=== PATIENT | female | born 1935 | race Caucasian/White ===

== ENCOUNTER → 2016-07-08 | Outpatient (CLI) | payer BC ==
[~2016-07-08] MED LIST: CALC-338 PO; CHOL100010 PO; FLAXOIL2 PO; HYDR25TA5 PO; LOSA1TAB PO; MELA3TAB7 PO; MIRA1TAB3 PO; VITAMIN C PO
== END | disposition home or self-care (01) ==
LOC: C.LABSPEC 17:13
PROVIDERS: ATTEND Nurse Practitioner Adult Health
DX: N39.0 Urinary tract infection, site not specified (principal)

== ENCOUNTER → 2016-09-28 | Outpatient (CLI) | payer BC ==
[2016-09-28 09:36] LABS: BASO % 0.2 %; BASO ABS # 0.01 K/uL (0-0.2); COMPLETE YES; EOS % 3.4 %; HEMATOCRIT 41.7 % (37-47); LYMPH % 47.3 %; MEAN CELL VOLUME 92.9 fL (80-100); MEAN CORPUSCULAR HEMOGLOBIN 31.6 pg (25-34); MEAN CORPUSCULAR HGB CONC 34.1 g/dl (32-36); MEAN PLATELET VOLUME 10.1 fL (7.4-10.4); MONO % 7.4 %; NEUT % 41.7 %; PLATELET COUNT 197 K/uL (130-400); RED BLOOD COUNT 4.49 M/uL (4.2-5.4); WHITE BLOOD COUNT 4.44 K/uL (4.8-10.8)
[2016-09-28 10:00] LABS: ESTIMATED AVERAGE GLUCOSE 123 mg/dl; HA1C FLAG Normal (Normal)
[2016-09-28 10:27] LABS: BLOOD UREA NITROGEN 16 mg/dl (7-18); CREATININE 0.76 mg/dl (0.60-1.20); GLUCOSE 87 mg/dl (70-99)
[2016-09-28 10:28] LABS: ALT/SGPT 23 U/L (12-78); AST/SGOT 18 U/L (15-37); BUN/CREATININE RATIO 20.9 (10-20); CALCIUM 9.1 mg/dl (8.5-10.1); CARBON DIOXIDE 33 mmol/L (21-32); CHLORIDE 101 mmol/L (98-107); POTASSIUM 3.6 mmol/L (3.5-5.1); SODIUM 138 mmol/L (136-145)
[2016-09-28 10:37] LABS: ALB/GLOB RATIO 1.1 (0.9-2); ALKALINE PHOSPHATASE 60 U/L (45-117); CHOLESTEROL 217 mg/dl (0-200); CHOLESTEROL/HDL RATIO 3.1; HDL CHOLESTEROL 70 mg/dl; LDL CHOLESTEROL CALCULATED 125 mg/dl; PHOSPHORUS 3.1 mg/dl (2.5-4.9); TRIGLYCERIDES 112 mg/dl (0-150); VERY LOW DENSITY LIPOPROT CALC 22 mg/dl
[2016-09-29 09:52] LABS: C-REACTIVE PROT HIGHSEN 1.1 MG/L
--- NOTE | 2016-10-02 13:12 | CODING QUERY MEDICAL NECESSITY ---
CQSUPPORTING DIAGNOSIS NEEDED A supporting diagnosis is required for the test/procedure performed on this patient in order for us to be reimbursed by the patient's insurance. Please provide a supporting diagnosis for the following test/procedure listed below next to the test name along with your signature. *If there is no additional diagnosis for this patient that would support the following test/procedure please document that below next to the test/procedure. Test(s)/Procedure(s) that require a supporting diagnosis: DOS 09/28/16 VITAMIN D TEST VITAMIN B12 C-RECTIVE PROTEIN LANI SENSITIVITY TESTING Provider Signature: Date: Thank you Vashti Lawson Health Information Management Once completed, please kindly fax back to [phone] For questions please call [phone]
== END | disposition home or self-care (01) ==
LOC: C.LAB1850 08:23
PROVIDERS: ATTEND Family Medicine
DX: R73.09 Other abnormal glucose (principal); D51.9 Vitamin B12 deficiency anemia, unspecified; D47.2 Monoclonal gammopathy; E55.9 Vitamin D deficiency, unspecified

== ENCOUNTER → 2017-01-20 | Outpatient (CLI) | payer BC ==
--- NOTE | 2017-01-20 15:24 | DIAGNOSTIC IMAGING REPORT ---
TWO VIEW CHEST CLINICAL HISTORY: Dyspnea. FINDINGS: PA and lateral chest radiographs are compared to study dated 03/02/2013. Correlation is made with chest CT dated 08/08/2009. The cardiomediastinal silhouette is unremarkable. There is atherosclerotic calcification of the thoracic aorta. Chronic interstitial thickening is similar to previous no airspace consolidation or pleural effusion is identified. There is no pneumothorax. The skeletal structures are osteopenic. Degenerative change and mild kyphoscoliosis are noted in the thoracic spine. IMPRESSION: No active disease in the chest. Electronically signed by: Nikunj Isidro M.D. 01/20/2017 3:23 PM Dictated Date/Time: 01/20/2017 3:22 PM
== END | disposition home or self-care (01) ==
LOC: C.RAD 14:59
PROVIDERS: ATTEND Family Medicine
DX: J18.9 Pneumonia, unspecified organism (principal)

== ENCOUNTER → 2017-02-26 | Outpatient (CLI) | payer BC ==
--- NOTE | 2017-02-26 15:49 | MAMMOGRAPHY REPORT ---
BILATERAL DIGITAL SCREENING MAMMOGRAM WITH CAD: 02/26/2017 CLINICAL HISTORY: Routine screening. TECHNIQUE: Current study was also evaluated with a Computer Aided Detection (CAD) system. Bilateral CC and MLO views were obtained. COMPARISON: Comparison is made to exams dated: 02/13/2016 mammogram, 02/11/2015 mammogram, 02/09/2014 m ammogram, 02/08/2013 mammogram, 02/08/2012 mammogram, and 02/05/2011 mammogram - [facility] enter. BREAST COMPOSITION: There are scattered areas of fibroglandular density in both breasts. FINDINGS: No suspicious masses, calcifications, or areas of architectural distortion are noted in ei ther breast. There has been no significant interval change compared to prior exams. Scattered bilater al benign-appearing calcifications are not significantly changed. IMPRESSION: ACR BI-RADS CATEGORY 2: BENIGN There is no mammographic evidence of malignancy. A 1 year screening mammogram is recommended. The pa tient will receive written notification of the results. Approximately 10% of breast cancers are not detected with mammography. A negative mammographic report should not delay biopsy if a clinically suggestive mass is present. Astrid Smith M.D. ah/:02/26/2017 14:47:11 Dental Practice Manager: Joan BUTTS(Helen)(Kayy), [facility] letter sent: Normal 1/2 BI-RADS Code: ACR BI-RADS Category 2: Benign
== END | disposition home or self-care (01) ==
LOC: C.MAMM 13:44
PROVIDERS: ATTEND Family Medicine
DX: Z12.31 Encounter for screening mammogram for malignant neoplasm of breast (principal)

== ENCOUNTER → 2017-03-23 | Outpatient (CLI) | payer BC ==
[2017-03-23 09:35] LABS: BASO % 0.5 %; BASO ABS # 0.03 K/uL (0-0.2); COMPLETE YES; EOS % 1.9 %; HEMATOCRIT 41.2 % (37-47); IG% 0.2 %; LYMPH % 41.3 %; LYMPH ABS # 2.36 K/uL (1.2-3.4); MEAN CELL VOLUME 94.3 fL (80-100); MEAN CORPUSCULAR HEMOGLOBIN 30.9 pg (25-34); MEAN CORPUSCULAR HGB CONC 32.8 g/dl (32-36); NEUT % 49.1 %; PLATELET COUNT 225 K/uL (130-400); RED BLOOD COUNT 4.37 M/uL (4.2-5.4); WHITE BLOOD COUNT 5.72 K/uL (4.8-10.8)
[2017-03-23 09:58] LABS: ALT/SGPT 19 U/L (12-78); AST/SGOT 18 U/L (15-37); BLOOD UREA NITROGEN 20 mg/dl (7-18); BUN/CREATININE RATIO 28.8 (10-20); CALCIUM 9.2 mg/dl (8.5-10.1); CARBON DIOXIDE 31 mmol/L (21-32); CHLORIDE 102 mmol/L (98-107); CHOLESTEROL 195 mg/dl (0-200); CREATININE 0.68 mg/dl (0.60-1.20); GLUCOSE 89 mg/dl (70-99); POTASSIUM 3.5 mmol/L (3.5-5.1); SODIUM 138 mmol/L (136-145); TRIGLYCERIDES 104 mg/dl (0-150); VERY LOW DENSITY LIPOPROT CALC 21 mg/dl
[2017-03-23 10:06] LABS: ALB/GLOB RATIO 1.1 (0.9-2); ALKALINE PHOSPHATASE 68 U/L (45-117); CHOLESTEROL/HDL RATIO 2.8; HDL CHOLESTEROL 70 mg/dl; LDL CHOLESTEROL CALCULATED 104 mg/dl; PHOSPHORUS 2.6 mg/dl (2.5-4.9)
[2017-03-24 10:35] LABS: C-REACTIVE PROT HIGHSEN 1.6 MG/L
== END | disposition home or self-care (01) ==
LOC: C.LAB1850 08:11
PROVIDERS: ATTEND Family Medicine
DX: R73.09 Other abnormal glucose (principal); E55.9 Vitamin D deficiency, unspecified; D51.9 Vitamin B12 deficiency anemia, unspecified

== ENCOUNTER → 2017-09-27 | Outpatient (CLI) | payer BC ==
[2017-09-27 09:41] LABS: BASO % 0.4 %; BASO ABS # 0.02 K/uL (0-0.2); HEMATOCRIT 40.8 % (37-47); HEMOGLOBIN 14.1 g/dL (12.0-16.0); LYMPH % 40.3 %; LYMPH ABS # 1.99 K/uL (1.2-3.4); MEAN CELL VOLUME 93.2 fL (80-100); MEAN CORPUSCULAR HEMOGLOBIN 32.2 pg (25-34); MEAN CORPUSCULAR HGB CONC 34.6 g/dl (32-36); MEAN PLATELET VOLUME 9.9 fL (7.4-10.4); MONO % 8.9 %; MONO ABS # 0.44 K/uL (0.11-0.59); NEUT % 48.4 %; NEUT ABS # 2.39 K/uL (1.4-6.5); PLATELET COUNT 235 K/uL (130-400); RED CELL DISTRIBUTION WIDTH CV 13.4 % (11.5-14.5); RED CELL DISTRIBUTION WIDTH SD 45.6 fL (36.4-46.3); WHITE BLOOD COUNT 4.94 K/uL (4.8-10.8)
[2017-09-27 09:58] LABS: HEMOGLOBIN A1C 5.9 % (4.5-5.6)
[2017-09-27 10:05] LABS: ALBUMIN 3.6 gm/dl (3.4-5.0); ALT/SGPT 24 U/L (12-78); AST/SGOT 17 U/L (15-37); BLOOD UREA NITROGEN 18 mg/dl (7-18); CALCIUM 9.5 mg/dl (8.5-10.1); CARBON DIOXIDE 30 mmol/L (21-32); CHOLESTEROL 207 mg/dl (0-200); CREATININE 0.66 mg/dl (0.60-1.20); GLUCOSE 92 mg/dl (70-99); POTASSIUM 3.7 mmol/L (3.5-5.1); SODIUM 136 mmol/L (136-145); URIC ACID 5.2 mg/dl (2.6-7.2)
[2017-09-27 10:14] LABS: ALKALINE PHOSPHATASE 65 U/L (45-117); LDL CHOLESTEROL CALCULATED 114 mg/dl; TRANSFERRIN 237 mg/dl (200-360)
== END | disposition home or self-care (01) ==
LOC: C.LAB1850 07:52
PROVIDERS: ATTEND Family Medicine
DX: E88.81 Metabolic syndrome and other insulin resistance (principal); E55.9 Vitamin D deficiency, unspecified; D51.9 Vitamin B12 deficiency anemia, unspecified; E78.9 Disorder of lipoprotein metabolism, unspecified; R53.83 Other fatigue

== ENCOUNTER 2022-03-12 15:44 | Inpatient (IN) ==
[2022-03-12] MEDS ORDERED: SODIUM CHLORIDE 0.9% 500 ML IV STA (16:33)
--- NOTE | 2022-03-12 16:36 | Emergency Department Note ---
Impression & Plan Acute hyponatremia, Urinary tract infection ED Provider Note NAME: MEGHA SANTA AGE: 86 SEX: F : 1935 ARRIVES VIA: Walk-In INFORMANT: Patient, ED PROVIDER(S): Christian Diggs DO CHIEF COMPLAINT: Generalized weakness HPI: The patient is an 86-year-old female who presented to the emergency department for an evaluation of generalized weakness. The patient was seen in our facility yesterday for similar complaints. She had a fall recently and was diagnosed with a thoracic compression fracture. She was treated in the emergency department but also had other laboratory and radiographic studies. She is since been complaining of constipation. It was recommended that she stay in the emergency department for admission however she did not want to stay in the hospital so she left. The patient called her family doctor this morning and was instructed to return to the emergency department for admission because of h er low sodium. The patient states that she has noticed constipation as well as lower abdominal tenderness. She also has been noticing lower extremity swelling. She denies having any chest pain or difficulty breathing. She states that she has been compliant with her outpatient medications otherwise. ROS: See above HPI for pertinent positives & negatives. A total of 10 systems reviewed and were otherwise negative. PAST MEDICAL HISTORY: See Below PAST SURGICAL HISTORY: See Below FAMILY HISTORY: See Below SOCIAL HISTORY: See Below HOME MEDICATIONS: See Below ALLERGIES: See Below VITALS: See Below PHYSICAL EXAMINATION: GENERAL: Patient is awake alert in no acute distress patient is resting comfortably and showing no signs of anxiety EYES: The conjunctivae are clear. The pupils are round and reactive. EARS, NOSE, MOUTH AND THROAT: The nose is without any evidence of any deformity. Mucous membranes are moist. Tongue is midline. NECK: The neck is nontender and supple. RESPIRATORY: Normal respiratory effort is noted there is no evidence of wheezing rhonchi or rales CARDIOVASCULAR: Regular rate and rhythm noted there no murmurs rubs or gallops normal S1 normal S2. GASTROINTESTINAL: The abdomen is soft and mildly distended. There is no guarding or rigidity. MUSCULOSKELETAL/EXTREMITIES: There is no evidence of gross deformity full range of motion is noted in the hips and shoulders. SKIN: Pedal edema was noted bilaterally. She has very significant swelling that goes up to both legs. Skin is warm. NEUROLOGIC: Patient is awake alert and oriented x3 MEDICAL DECISION MAKING: The patient is an 86-year-old female who presented to the emergency department for an evaluation of weakness. The patient was seen in our facility yesterday. She is been having problems with constipation as well as a compression fracture in her spine. The patient also was noted to have hyponatremia. It was advised that the patient be admitted yesterday when she was seen in our facility. She was seen at her primary care physician's office and told to come back to the emergency department for reevaluation and for admission. The patient was treated with IV antibiotics for presumed urinary tract infection. She was reev aluated multiple times. I discussed her condition with the on-call [facility] hospitalist. Triage Nursing notes reviewed. Prior medical records reviewed Vital Signs: reviewed and remarkable for elevated blood pressure. Differential diagnosis: Infection, dehydration, metabolic abnormality, hypo/hyperglycemia, electrolyte disturbance, anemia, hypoxia, cardiac sources, intracerebral event, toxicologic, neurologic, as well as other pathologies. ER treatment provided: See below Diagnostics interpreted by me: ECG: EKG was obtained in the emergency department. My interpretation is sinus rhythm at 67 bpm. First-degree AV block was noted. There is no ectopy. There is no acute ST segment abnormalities noted. This was compared to a tracing from November 16, 2018. No changes were noted. Cardiac Monitoring: An order was placed for continuous cardiac monitoring. The monitor shows a rate of 71 bpm with sinus rhythm. Laboratory studies: As stated above and show below. Imaging studies: See below Consultation(s): I discussed this case with Dr. Villasenor Past Med/Surg History Medical History Arthritis Cystocele Encounter for pre-operative examination H/O uterine leiomyoma Hypertension Monoclonal gammopathy of unknown significance (MGUS) MVP (mitral valve prolapse) Post-menopausal bleeding Presence of pessary Second degree uterine prolapse Skin rash Urinary incontinence Surgical History H/O cervical polypectomy 2008 H/O inguinal hernia repair Left - 1998 History of elbow surgery "Broken elbow repair" - 11/1990 w/ Dr. Starr History of tonsillectomy Family History Mother Myocardial infarction Father Myocardial infarction Sister Breast cancer Other Asthma No family history of adverse response to anesthesia No family history of bleeding disorder Denies family history of Ovarian cancer Colorectal cancer Social History Smoking Status: Never smoker Second Hand Exposure: No; Hx Alcohol Use: No Hx Substance Use: No Preferred Language: Mohawk Communication Ability: Effective Cabinet Finisher Required: No Beliefs That Will Affect Care: None Current Living Situation: Spouse Feels Safe at Home: Yes Assistive Devices: None Allergies Allergies Allergy/AdvReac Type Severity Reaction Status Date / Time iodine Allergy UNK Verified 03/11/22 16:05 Penicillins AdvReac Unknown Verified 03/11/22 16:05 Jxrtbjq-RDR-XxW Reductase AdvReac Muscle Pain Verified 03/11/22 16:05 Inhibitor [Iceklil-Dxd-Ojk Reductase Inhibitor] Home Meds Home Medications Medication Instructions Recorded Confirmed calcium citrate 315 mg 1 tab PO DAILY 04/10/20 03/11/22 calcium-vitamin D3 6.25 mcg (250 unit) tablet (Citracal + Vitamin D Maximum) ascorbic acid (vitamin C) 1,000 mg 1 g PO QAM 09/26/21 03/11/22 tablet (Vitamin C With Gill Hips) diltiazem HCl 120 mg 120 mg PO DAILY 02/05/22 03/11/22 capsule,extended release 24 hr (Cartia XT) ergocalciferol (vitamin D2) 1,250 50,000 unit PO .COMPLEX 03/11/22 03/11/22 mcg (50,000 unit) capsule Previous Rx's Medication Instructions Recorded furosemide 20 mg tablet 10 mg PO DAILY #90 tabs 10/23/21 apixaban 5 mg tablet (Eliquis) 5 mg PO BID #180 tabs 02/03/22 spironolactone 25 mg tablet 25 mg PO DAILY #90 tabs 02/16/22 sennosides 8.6 mg-docusate sodium 1 tab-cap PO DAILY PRN 03/11/22 50 mg tablet constipation #60 tabs Results & Data (ED) Vital Signs Vital Signs - 24 hr 03/12/22 15:49 03/12/22 17:52 Temperature 36.3 C L Temperature Source Temporal Artery Scan Pulse Rate 78 Pulse Rate [Finger] 71 Pulse Rhythm [Finger] Regular Pulse Strength [Finger] Normal Respiratory Rate 19 20 Respiratory Effort / Characteristics Non-Labored Spontaneous Respiratory Depth Normal Respiratory Pattern Regular Blood Pressure 187/80 H Blood Pressure [Right Arm] 164/86 H Blood Pressure Mean 115 Blood Pressure Mean [Right Arm] 112 Blood Pressure Position [Right Arm] Lying Pulse Oximetry 98 95 Oxygen Delivery Method Room Air Sepsis Recent Fever Within 48 Hours No Sepsis New/Unexplained Change in Mental Status N/A Sepsis Action Taken by Nursing No Action Required Home Medications Current Medication List: was personally reviewed by me Laboratory Data Attestation: I reviewed the patient's lab results. Result diagrams: 03/12/22 16:34 03/12/22 16:34 Lab Results 03/12/22 03/12/22 03/12/22 Range/Units 16:34 16:34 16:34 WBC 6.06 (4.8-10.8) K/ul RBC 4.50 (3.93-5.22) M/uL Hgb 14.3 (12.0-16.0) g/dl Hct 41.5 (34.1-44.9) % MCV 92.2 (80.0-100.0) fL MCH 31.8 (25.0-34.0) pg MCHC 34.5 (32.0-36.0) g/dL RDW Std Deviation 40.0 (36.4-46.3) fL RDW Coeff of Jason 11.8 (11.5-14.5) % Plt Count 253 (130-400) K/uL MPV 8.7 L (9.4-12.3) fL Immature Gran % (Auto) 0.2 % Neut % (Auto) 65.2 % Lymph % (Auto) 23.9 % [place] % (Auto) 9.2 % Eos % (Auto) 1.2 % Baso % (Auto) 0.3 % Neut # (Auto) 3.95 (1.4-6.5) K/uL Lymph # (Auto) 1.45 (1.2-3.4) K/uL [place] # (Auto) 0.56 (0.24-0.82) K/uL Eos # (Auto) 0.07 (0-0.50) K/uL Baso # (Auto) 0.02 (0-0.2) K/uL Immature Gran # (Auto) 0.01 (0.00-0.02) K/uL PT 10.5 (9.0-12.0) Seconds INR 1.0 (0.9-1.1) APTT 30.8 (21.0-31.0) Seconds PTT Ratio 1.1 Sodium (136-145) mmol/L Potassium (3.5-5.1) mmol/L Chloride (98-107) mmol/L Carbon Dioxide (21-32) mmol/L Anion Gap (3-11) BUN (6-23) mg/dl Creatinine (0.6-1.2) mg/dl Est Cr Clr Drug Dosing Est GFR ( Amer) ml/min Est GFR (Non-Af Amer) ml/min BUN/Creatinine Ratio (10-20) Glucose (70-99(Fasting)) mg/dl Osmolality 265 L (280-300) mOsm/kg Calcium (8.5-10.1) mg/dl Total Bilirubin (0.2-1.0) mg/dl AST (13-39) U/L ALT (7-52) U/L Alkaline Phosphatase (34-104) U/L Troponin I High Sens (0-14) pg/ml Total Protein (6.0-8.3) gm/dl Albumin (3.4-5.0) gm/dl Globulin (2.5-4.0) gm/dl Albumin/Globulin Ratio (0.9-2) Lipase (11-82) U/L Urine Color Urine Appearance (Clear) Urine pH (4.5-7.5) Ur Specific [place] (1.000-1.030) Urine Protein (Negative) Urine Glucose (UA) (Negative) Urine Ketones (Negative) Urine Blood (Negative) Urine Nitrite (Negative) Urine Bilirubin (Negative) Urine Urobilinogen (Negative) Ur Leukocyte Esterase (Negative) Urine WBC (Auto) (0-5) /hpf Urine RBC (Auto) (0-4) /hpf U Hyaline Cast (Auto) (0-5) /lpf U Epithel Cells (Auto) (0-5) /lpf Urine Bacteria (Auto) (Negative) Urine Osmolality (500-800) mOsm/kg Ur Random Sodium mmol/L 03/12/22 03/12/22 03/12/22 Range/Units 16:34 17:33 17:33 WBC (4.8-10.8) K/ul RBC (3.93-5.22) M/uL Hgb (12.0-16.0) g/dl Hct (34.1-44.9) % MCV (80.0-100.0) fL MCH (25.0-34.0) pg MCHC (32.0-36.0) g/dL RDW Std Deviation (36.4-46.3) fL RDW Coeff of Jason (11.5-14.5) % Plt Count (130-400) K/uL MPV (9.4-12.3) fL Immature Gran % (Auto) % Neut % (Auto) % Lymph % (Auto) % [place] % (Auto) % Eos % (Auto) % Baso % (Auto) % Neut # (Auto) (1.4-6.5) K/uL Lymph # (Auto) (1.2-3.4) K/uL [place] # (Auto) (0.24-0.82) K/uL Eos # (Auto) (0-0.50) K/uL Baso # (Auto) (0-0.2) K/uL Immature Gran # (Auto) (0.00-0.02) K/uL PT (9.0-12.0) Seconds INR (0.9-1.1) APTT (21.0-31.0) Seconds PTT Ratio Sodium 121 L (136-145) mmol/L Potassium 4.7 (3.5-5.1) mmol/L Chloride 86 L (98-107) mmol/L Carbon Dioxide 29 (21-32) mmol/L Anion Gap 6 (3-11) BUN 26 H (6-23) mg/dl Creatinine 0.73 (0.6-1.2) mg/dl Est Cr Clr Drug Dosing Not Reportable Est GFR ( Amer) 86.4 ml/min Est GFR (Non-Af Amer) 74.6 ml/min BUN/Creatinine Ratio 35.6 H (10-20) Glucose 110 H (70-99(Fasting)) mg/dl Osmolality (280-300) mOsm/kg Calcium 10.5 H (8.5-10.1) mg/dl Total Bilirubin 0.5 (0.2-1.0) mg/dl AST 19 (13-39) U/L ALT 11 (7-52) U/L Alkaline Phosphatase 81 (34-104) U/L Troponin I High Sens 4.8 (0-14) pg/ml Total Protein 7.3 (6.0-8.3) gm/dl Albumin 4.4 (3.4-5.0) gm/dl Globulin 2.9 (2.5-4.0) gm/dl Albumin/Globulin Ratio 1.5 (0.9-2) Lipase 28 (11-82) U/L Urine Color Yellow Urine Appearance Clear (Clear) Urine pH 7.5 (4.5-7.5) Ur Specific [place] 1.012 (1.000-1.030) Urine Protein Negative (Negative) Urine Glucose (UA) Negative (Negative) Urine Ketones Negative (Negative) Urine Blood Trace H (Negative) Urine Nitrite Negative (Negative) Urine Bilirubin Negative (Negative) Urine Urobilinogen Negative (Negative) Ur Leukocyte Esterase 3+ H (Negative) Urine WBC (Auto) 10-30 H (0-5) /hpf Urine RBC (Auto) 5-10 H (0-4) /hpf U Hyaline Cast (Auto) 0 (0-5) /lpf U Epithel Cells (Auto) 20-30 H (0-5) /lpf Urine Bacteria (Auto) 1+ H (Negative) Urine Osmolality 380 L (500-800) mOsm/kg Ur Random Sodium mmol/L 03/12/22 Range/Units 17:33 WBC (4.8-10.8) K/ul RBC (3.93-5.22) M/uL Hgb (12.0-16.0) g/dl Hct (34.1-44.9) % MCV (80.0-100.0) fL MCH (25.0-34.0) pg MCHC (32.0-36.0) g/dL RDW Std Deviation (36.4-46.3) fL RDW Coeff of Jason (11.5-14.5) % Plt Count (130-400) K/uL MPV (9.4-12.3) fL Immature Gran % (Auto) % Neut % (Auto) % Lymph % (Auto) % [place] % (Auto) % Eos % (Auto) % Baso % (Auto) % Neut # (Auto) (1.4-6.5) K/uL Lymph # (Auto) (1.2-3.4) K/uL [place] # (Auto) (0.24-0.82) K/uL Eos # (Auto) (0-0.50) K/uL Baso # (Auto) (0-0.2) K/uL Immature Gran # (Auto) (0.00-0.02) K/uL PT (9.0-12.0) Seconds INR (0.9-1.1) APTT (21.0-31.0) Seconds PTT Ratio Sodium (136-145) mmol/L Potassium (3.5-5.1) mmol/L Chloride (98-107) mmol/L Carbon Dioxide (21-32) mmol/L Anion Gap (3-11) BUN (6-23) mg/dl Creatinine (0.6-1.2) mg/dl Est Cr Clr Drug Dosing Est GFR ( Amer) ml/min Est GFR (Non-Af Amer) ml/min BUN/Creatinine Ratio (10-20) Glucose (70-99(Fasting)) mg/dl Osmolality (280-300) mOsm/kg Calcium (8.5-10.1) mg/dl Total Bilirubin (0.2-1.0) mg/dl AST (13-39) U/L ALT (7-52) U/L Alkaline Phosphatase (34-104) U/L Troponin I High Sens (0-14) pg/ml Total Protein (6.0-8.3) gm/dl Albumin (3.4-5.0) gm/dl Globulin (2.5-4.0) gm/dl Albumin/Globulin Ratio (0.9-2) Lipase (11-82) U/L Urine Color Urine Appearance (Clear) Urine pH (4.5-7.5) Ur Specific [place] (1.000-1.030) Urine Protein (Negative) Urine Glucose (UA) (Negative) Urine Ketones (Negative) Urine Blood (Negative) Urine Nitrite (Negative) Urine Bilirubin (Negative) Urine Urobilinogen (Negative) Ur Leukocyte Esterase (Negative) Urine WBC (Auto) (0-5) /hpf Urine RBC (Auto) (0-4) /hpf U Hyaline Cast (Auto) (0-5) /lpf U Epithel Cells (Auto) (0-5) /lpf Urine Bacteria (Auto) (Negative) Urine Osmolality (500-800) mOsm/kg Ur Random Sodium 68 mmol/L Administered Medications Discontinued Medications Sodium Chloride (Nss) 500 mls @ 999 mls/hr IV .Q31M STA Stop: 03/12/22 17:03 Last Infusion: 03/12/22 17:45 Dose: 0 mls/hr Documented By: [id number] Admin: 03/12/22 17:00 Dose: 999 mls/hr Documented By: [id number] Imaging Data Radiologist's Impression: KUB X-Ray 03/12/22 16:33 KUB HISTORY: Acute generalized abdominal pain pain COMPARISON: CT abdomen and pelvis 03/11/2022 FINDINGS: Moderate fecal retention. Gas-filled loops of bowel within the central abdomen are likely large bowel and have decreased from the prior study. No renal calculi. No ureteral calculi. No pneumoperitoneum or pneumatosis. Dege nerative changes of the spine, pelvis and hips. The study is limited secondary to patient body habitus. Calcified uterine fibroid. No fracture. IMPRESSION: Suggested constipation with nonobstructive bowel gas pattern. ACT 112: Negative or not required by law. The above report was generated using voice recognition software. It may contain grammatical, syntax or spelling errors. Electronically signed by: Marcello Gonzalez M.D. 03/12/2022 5:09 PM Chest X-Ray 03/12/22 16:34 XR chest 1V portable CLINICAL HISTORY: pain COMPARISON STUDY: Chest CT August 08, 2009. Chest radiograph November 16, 2018. FINDINGS: Lung volumes are mildly diminished. No pneumothorax is noted. There is no definite pleural effusion. Blunting of the left costophrenic angle is likely chronic. Mild bibasilar opacities favor atelectasis. Cardiomediastinal silhouette is stable. No evidence for pulmonary edema. IMPRESSION: No acute cardiopulmonary findings. ACT 112: Negative or not required by law. Electronically signed by: Alonzo Crump M.D. 03/12/2022 4:56 PM Discharge Plan Visit Data Chief Complaint: Referred by Doctor Stated Complaint: REFERRED BY DOCTOR,ABNORMAL RESULTS ED Provider: Christian Diggs Discharge Problem: Acute hyponatremia, Urinary tract infection Patient Disposition: Being Evaluated by Hospitalist Forms Stand Alone Forms: [facility] Prescriptions Prescriptions: No Action furosemide 20 mg tablet 10 mg PO DAILY Qty: 90 3RF Eliquis 5 mg tablet 5 mg PO BID Qty: 180 3RF diltiazem HCl [Cartia XT] 120 mg capsule,extended release 24hr 120 mg PO DAILY ergocalciferol (vitamin D2) 1,250 mcg (50,000 unit) capsule 50,000 unit PO .COMPLEX Rx Instructions: 50,000 units PO once a week; spironolactone 25 mg tablet 25 mg PO DAILY Qty: 90 3RF calcium citrate-vitamin D3 [Citracal + D Maximum] 315 mg-6.25 mcg (250 unit) tablet 1 tab PO DAILY ascorbic acid (vitamin C) [Vitamin C With Gill Hips] 1,000 mg tablet 1 g PO QA sennosides-docusate sodium 8.6-50 mg tablet 1 tab-cap PO DAILY PRN (Reason: constipation) Qty: 60 0RF Referrals Referrals: Ayaan Arriola MD [Primary Care Provider] -
[2022-03-12 16:47] LABS: Basophils # (auto) 0.02 K/uL (0-0.2); Basophils % (auto) 0.3 %; Eosinophils # (auto) 0.07 K/uL (0-0.50); Eosinophils % (auto) 1.2 %; Hematocrit (blood only) 41.5 % (34.1-44.9); Hemoglobin 14.3 g/dl (12.0-16.0); Immature Granulocytes # (auto) 0.01 K/uL (0.00-0.02); Immature Granulocytes % (auto) 0.2 %; Lymphocytes # (auto) 1.45 K/uL (1.2-3.4); Lymphocytes % (auto) 23.9 %; Mean Corpuscular Hemoglobin 31.8 pg (25.0-34.0); Mean Corpuscular Hgb Conc 34.5 g/dL (32.0-36.0); Mean Corpuscular Volume 92.2 fL (80.0-100.0); Mean Platelet Volume 8.7 fL (9.4-12.3); Monocytes # (auto) 0.56 K/uL (0.24-0.82); Monocytes % (auto) 9.2 %; Neutrophils # (auto) 3.95 K/uL (1.4-6.5); Neutrophils % (auto) 65.2 %; Platelet Count 253 K/uL (130-400); RDW Coefficient of Variation 11.8 % (11.5-14.5); White Blood Count 6.06 K/ul (4.8-10.8)
--- NOTE | 2022-03-12 16:57 | XRay Report ---
XR chest 1V portable CLINICAL HISTORY: pain COMPARISON STUDY: Chest CT August 08, 2009. Chest radiograph November 16, 2018. FINDINGS: Lung volumes are mildly diminished. No pneumothorax is noted. There is no definite pleural effusion. Blunting of the left costophrenic angle is likely chronic. Mild bibasilar opacities favor a telectasis. Cardiomediastinal silhouette is stable. No evidence for pulmonary edema. IMPRESSION: No acute cardiopulmonary findings. ACT 112: Negative or not required by law. Electronically signed by: Alonzo Crump M.D. 03/12/2022 4:56 PM
[2022-03-12 17:00] LABS: Partial Thromboplastin Ratio 1.1; Partial Thromboplastin Time 30.8 Seconds (21.0-31.0); Prothrombin Time 10.5 Seconds (9.0-12.0)
[2022-03-12 17:10] LABS: Alanine Aminotransferase 11 U/L (7-52); Albumin Globulin Ratio 1.5 (0.9-2); Albumin Level 4.4 gm/dl (3.4-5.0); Alkaline Phosphatase 81 U/L (34-104); Anion Gap 6 (3-11); Aspartate Aminotransferase 19 U/L (13-39); BUN Creatinine Ratio 35.6 (10-20); Bilirubin,Total 0.5 mg/dl (0.2-1.0); Blood Urea Nitrogen 26 mg/dl (6-23); Calcium 10.5 mg/dl (8.5-10.1); Carbon Dioxide 29 mmol/L (21-32); Chloride 86 mmol/L (98-107); Est GFR (African American) 86.4 ml/min; Est GFR (Non-African American) 74.6 ml/min; Globulin 2.9 gm/dl (2.5-4.0); Glucose 110 mg/dl (70-99(Fasting)); Lipase 28 U/L (11-82); Potassium 4.7 mmol/L (3.5-5.1); Sodium 121 mmol/L (136-145); Total Protein 7.3 gm/dl (6.0-8.3)
--- NOTE | 2022-03-12 17:10 | XRay Report ---
KUB HISTORY: Acute generalized abdominal pain pain COMPARISON: CT abdomen and pelvis 03/11/2022 FINDINGS: Moderate fecal retention. Gas-filled loops of bowel within the central abdomen are likely l arge bowel and have decreased from the prior study. No renal calculi. No ureteral calculi. No pneumo peritoneum or pneumatosis. Degenerative changes of the spine, pelvis and hips. The study is limited s econdary to patient body habitus. Calcified uterine fibroid. No fracture. IMPRESSION: Suggested constipation with nonobstructive bowel gas pattern. ACT 112: Negative or not required by law. The above report was generated using voice recognition software. It may contain grammatical, syntax o r spelling errors. Electronically signed by: Marcello Gonzalez M.D. 03/12/2022 5:09 PM
[2022-03-12 17:15] LABS: Troponin I High Sensitivity 4.8 pg/ml (0-14)
[2022-03-12 17:43] LABS: Appearance Urine Clear (Clear); Bacteria Urine Automated 1+ (Negative); Bilirubin Urine Negative (Negative); Blood Urine Trace (Negative); Cast Urine Automated 0 /lpf (0-5); Color Urine Yellow; Epithelial Cell Urine Auto 20-30 /lpf (0-5); Glucose Urine UA Negative (Negative); Ketones Urine Negative (Negative); Leukocyte Esterase Urine 3+ (Negative); Nitrite Urine Negative (Negative); Protein Urine Negative (Negative); Specific Gravity Urine 1.012 (1.000-1.030); Urobilinogen Urine Negative (Negative); pH Urine 7.5 (4.5-7.5)
[2022-03-12] MEDS ORDERED: cefTRIAXone SODIUM 2,000 MG/70 ML BAG IV STA (19:18)
--- NOTE | 2022-03-12 19:23 | History & Physical Report ---
Date of Service March 12, 2022 Assessment & Plan (1) Acute hyponatremia: Plan: -Admit to medicine -Patient is currently afebrile, hemodynamically stable, and stable on room air -Not currently symptomatic at her current sodium level -Patient has a history of chronic hyponatremia and has been followed by Nephrology who has done a large workup thus far, per their last clinic note they switch her from a thiazide to lasix and encouraged her to increase her sodium intake -At this time the exact etiology of the patients acute on chronic hyponatremia is not definite but it likely has components of excessive free water intake as her serum and urine osmolality are both low, her lasix could also be contributing to the issue -Will hold her COAL CUTTER lasix for now and avoid free water intake -Ordered cortisol and TSH for am labs -Will repeat a sodium level overnight to ensure she is not correct too quickly -LACI stocking ordered to help with her lower extremity edema -AM BMP, mag, and phos (2) Constipation: Plan: -Patient has been severely constipated for approximately 3 weeks -CT yesterday and KUB today negative for obstruction -Will continue a heavy oral bowel regimen along with Fleet enemas, if no bowel movement by tomorrow morning she is willing to try manual disimpaction (3) Urinary tract infection: Plan: -ED gave patient a dose of ceftriaxone for a dirty UA but the patient has been afebrile, no leukocytosis, and no urinary symptoms -Hold additional abx for now and follow urine cultures (4) Paroxysmal atrial fibrillation: Plan: -Continue COAL CUTTER eliquis, and diltiazem (5) Hypertension: Plan: -Hold COAL CUTTER lasix for now until her sodium improves (6) Hyperlipidemia: Plan: -COAL CUTTER statin Plan The patient was discussed with Dr. Villasenor at the time of admission History of Present Illness Chief Complaint: Generalized weakness Primary Care Provider: Ayaan Arriola MD Trisha is an 86 y/o F with a PMH of chronic hyponatremia, HTN, hyperlipidemia, impaired glucose metabolism, paroxysmal Afib (on Eliquis), DVT, IgG gammopathy, osteoporosis and osteoarthritis who presented to the [facility] ED on 03/12/22 at the recommendation of her PCP for hyponatremia. Per chart review, the patient had fall on 02/25/22 resulting in a thoracic vertebra compression fracture. She came to the [facility] ED yesterday with complaints of constipation. CT of the abdomen and pelvis was negative for acute findings including obstruction and showed diverticulosis without diverticulitis. During their workup she was found to be hyponatremic at 122 (baseline is 130). For her constipation they gave her lactulose and a soap suds enema without relief, she declined manual disimpaction. The ED staff recommended she be admitted for her acute on chronic hyponatremia but she declined saying that she felt well. She elected to go home with a prescription of Sennosides-docusate sodium. In the ED today the patient was again noted to be hyponatremic at 121, renal function and other electrolytes are stable, Serum osmolality is 265 with urine osmolality of 380, UA appears infected as well, chest xray was negative for acute findings and KUG shows constipation without obstruction. In the ED the patient was given 2g of ceftriaxone for her UTI. At the time of the exam the patient was lying comfortably in bed in no acute distress with her daughter sitting bedside. They state that the patient has not had a bowel movement in 3 weeks until early this am when she had a small, liquid BM. She will have occasional sharp lower abdominal pain and denies recent nausea and vomiting. She has been trying to drink alot of water recently as they thought it would help her constipation but is unable to quantify how much she has been drinking. She states that she is still having pain in her thoracic spine as well. When asked about her current diuretic regimen she and her daughter state that she was switched off of her thiazide diuretic and has been taking her lasix 20 mg PO daily as prescribed. She has noticed some increased BL lower extremity edema over the past week but denies chest pain, cough, and SOB. She denies having dysuria, urine incontinence, and increased urinary frequency. She is will to continue enemas and a heavy oral bowel regimen at this time. If no significant bowel movement by tomorrow she would like to try digital disimpaction. She denies feeling lightheaded, dizzy, having changes in vision, hearing, taste, and smell, dysuria, hematuria, and recent falls since her last. Allergies Allergy/AdvReac Type Severity Reaction Status Date / Time iodine Allergy UNK Verified 03/11/22 16:05 Penicillins AdvReac Unknown Verified 03/11/22 16:05 Cmtdddz-RSS-AcR Reductase AdvReac Muscle Pain Verified 03/11/22 16:05 Inhibitor [Bcrhhjs-Bix-Vtm Reductase Inhibitor] Home Medications Medication Instructions Recorded Confirmed Type calcium citrate 315 mg 1 tab PO DAILY 04/10/20 03/15/22 History calcium-vitamin D3 6.25 mcg (250 unit) tablet (Citracal + Vitamin D Maximum) ascorbic acid (vitamin C) 1,000 mg 1 g PO QAM 09/26/21 03/15/22 History tablet (Vitamin C With Gill Hips) apixaban 5 mg tablet (Eliquis) 5 mg PO BID #180 tabs 02/03/22 03/15/22 Rx diltiazem HCl 120 mg 120 mg PO DAILY 02/05/22 03/15/22 History capsule,extended release 24 hr (Cartia XT) ergocalciferol (vitamin D2) 1,250 50,000 unit PO .COMPLEX 03/11/22 03/15/22 History mcg (50,000 unit) capsule sennosides 8.6 mg-docusate sodium 1 tab-cap PO DAILY PRN 03/11/22 03/19/22 Rx 50 mg tablet constipation #60 tabs lidocaine 5 % topical patch 1 patch transdermal QAM #30 ea 03/19/22 Rx sodium chloride 1 gram tablet 1 g PO BID #60 tabs 03/19/22 Rx Past Med/Surg History Medical History Arthritis Compression fracture Cystocele Encounter for pre-operative examination H/O uterine leiomyoma Hypertension Monoclonal gammopathy of unknown significance (MGUS) MVP (mitral valve prolapse) Post-menopausal bleeding Presence of pessary Second degree uterine prolapse Skin rash Urinary incontinence Surgical History H/O cervical polypectomy 2008 H/O inguinal hernia repair Left - 1998 History of elbow surgery "Broken elbow repair" - 11/1990 w/ Dr. Starr History of tonsillectomy Family History Mother Myocardial infarction Father Myocardial infarction Sister Breast cancer Other Asthma No family history of adverse response to anesthesia No family history of bleeding disorder Denies family history of Ovarian cancer Colorectal cancer Social History (Reviewed 03/17/22 @ 10:16 by SHANTAL Christy Smoking Status: Never smoker Second Hand Exposure: No; Hx Alcohol Use: No Hx Substance Use: No Preferred Language: Uruguayan Communication Ability: Effective Director And Professor Required: No Beliefs That Will Affect Care: None marital status: Current Living Situation: Spouse How many Children do You have: 2 Feels Safe at Home: Yes Assistive Devices: Cane Review of Systems Review of Systems: Denies current fever, chills, headache, changes in vision, hearing, taste, and smell, chest pain, SOB, cough, diarrhea, hematemesis, melena, dysuria, hematuria, and recent falls. All systems have been reviewed and are otherwise negative. Physical Exam Physical Exam: Physical Exam: General: In no acute distress, stated age, well-nourished, good hygiene HEENT: Normocephalic, atraumatic, no scleral icterus, pupils around round, symmetrical, and reactive to light, moist mucus membranes, trachea midline, no thyromegaly Chest/Pulm: No respiratory distress, symmetrical chest expansion, clear breath sounds throughout Cardiac: irregular rate and rhythm, systolic murmur noted Abdomen: Negative for ascites and bruising, normoactive bowel sounds, soft, non-tender to palpation throughout Musculoskeletal: Symmetrical and without signs of acute trauma, upper and lower extremities with full ROM, no atrophy, spasticity, or flaccidity Extremities: Radial, dorsalis pedis, and posterior tibial pulses are intact and symmetrical, +2 pitting edema in the BL lower extremities Skin: Warm, dry, no rashes , lesions, or scars noted Neuro: Alert and oriented to person, place, month, year, and president, no focal defects, CN II-XII tested and intact, finger to nose test negative, no tremors noted Psych: No acute distress, calm and cooperative during the exam Results & Data Results & Data ([facility]) Vital Signs (Past 12 Hours) Vital Signs Temp Pulse Pulse Resp BP BP Pulse Ox 03/12/22 17:52 71 20 164/86 H 95 03/12/22 15:49 36.3 C L 78 19 187/80 H 98 O2 Del Method 03/12/22 17:52 Room Air 03/12/22 15:49 Laboratory Results Abnormal lab results 03/12/22 03/12/22 03/12/22 Range/Units 16:34 16:34 16:34 MPV 8.7 L (9.4-12.3) fL Sodium 121 L (136-145) mmol/L Chloride 86 L (98-107) mmol/L BUN 26 H (6-23) mg/dl BUN/Creatinine Ratio 35.6 H (10-20) Glucose 110 H (70-99(Fasting)) mg/dl Osmolality 265 L (280-300) mOsm/kg Calcium 10.5 H (8.5-10.1) mg/dl Urine Blood (Negative) Ur Leukocyte Esterase (Negative) Urine WBC (Auto) (0-5) /hpf Urine RBC (Auto) (0-4) /hpf U Epithel Cells (Auto) (0-5) /lpf Urine Bacteria (Auto) (Negative) Urine Osmolality (500-800) mOsm/kg 03/12/22 03/12/22 Range/Units 17:33 17:33 MPV (9.4-12.3) fL Sodium (136-145) mmol/L Chloride (98-107) mmol/L BUN (6-23) mg/dl BUN/Creatinine Ratio (10-20) Glucose (70-99(Fasting)) mg/dl Osmolality (280-300) mOsm/kg Calcium (8.5-10.1) mg/dl Urine Blood Trace H (Negative) Ur Leukocyte Esterase 3+ H (Negative) Urine WBC (Auto) 10-30 H (0-5) /hpf Urine RBC (Auto) 5-10 H (0-4) /hpf U Epithel Cells (Auto) 20-30 H (0-5) /lpf Urine Bacteria (Auto) 1+ H (Negative) Urine Osmolality 380 L (500-800) mOsm/kg Diagnostic Findings KUB X-Ray 03/12/22 16:33 KUB HISTORY: Acute generalized abdominal pain pain COMPARISON: CT abdomen and pelvis 03/11/2022 FINDINGS: Moderate fecal retention. Gas-filled loops of bowel within the central abdomen are likely large bowel and have decreased from the prior study. No renal calculi. No ureteral calculi. No pneumoperitoneum or pneumatosis. Degenerative changes of the spine, pelvis and hips. The study is limited secondary to patient body habitus. Calcified uterine fibroid. No fracture. IMPRESSION: Suggested constipation with nonobstructive bowel gas pattern. ACT 112: Negative or not required by law. The above report was generated using voice recognition software. It may contain grammatical, syntax or spelling errors. Electronically signed by: Marcello Gonzalez M.D. 03/12/2022 5:09 PM Chest X-Ray 03/12/22 16:34 XR chest 1V portable CLINICAL HISTORY: pain COMPARISON STUDY: Chest CT August 08, 2009. Chest radiograph November 16, 2018. FINDINGS: Lung volumes are mildly diminished. No pneumothorax is noted. There is no definite pleural effusion. Blunting of the left costophrenic angle is likely chronic. Mild bibasilar opacities favor atelectasis. Cardiomediastinal silhouette is stable. No evidence for pulmonary edema. IMPRESSION: No acute cardiopulmonary findings. ACT 112: Negative or not required by law. Electronically signed by: Alonzo Crump M.D. 03/12/2022 4:56 PM ECG Additional Comments: Sinus rhythm with 1st degree A-V block Otherwise normal ECG When compared with ECG of 16-NOV-2018 09:17, Premature atrial complexes are no longer Present GA interval has increased Code Status & VTE Plan Code Status Full code VTE Prophylaxis Plan VTE Prophylaxis will be ordered: Yes Supervising Physician Co-Signing Physician Notes Patient seen and examined at bedside. During face to face encounter obtained a history and physical examination. I reviewed above note and agree with it. Plan of care discussed with patient and APC Peno. will admit to medicine for hyponatremia. will monitor. consult nephro. recommend fluid restriction. PG Care Time/CCT Total # of Minutes Spent Total Time Spent with Patient: Total time spent is greater than 50% in coordination of care (as documented) at patient's floor/unit and/or counseling patient: [place] [address] Initial Inpt Care Lvl 2 Patient Type Established Medical Decision Making Moderate Complexity Diagnoses Acute hyponatremia E87.1 Constipation K59.00 Constipation type: unspecified constipation type Urinary tract infection N39.0 Paroxysmal atrial fibrillation I48.0 Hypertension I10 Hyperlipidemia E78.5 (1) Constipation Constipation type: unspecified constipation type Qualified Code(s): K59.00 - Constipation, unspecified
[2022-03-12] MEDS ORDERED: SOD PHOSPHATE/SOD BIPHOSPHATE ENEMA 132 ML BTL PR STA (23:10)
[2022-03-13] MEDS: DOCUSATE SODIUM/SENNA 50/8.6MG TAB PO SCH ×3 (00:01→20:43)
[2022-03-13] MEDS: POLYETHYLENE (MIRALAX) 17 GM PACK PO SCH ×2 (08:21)
[2022-03-13] MEDS: CALCIUM 600MG + VIT D 400 IU TAB PO SCH (08:29)
[2022-03-13] MEDS: dilTIAZem HCL 120 MG CAPCR PO SCH (08:29)
[2022-03-13] MEDS: ASCORBIC ACID 500 MG TAB PO SCH (08:29)
[2022-03-13] MEDS: APIXABAN 5 MG TABLET PO SCH ×3 (08:29→20:39)
[2022-03-13 08:34] LABS: Hemoglobin 12.7 g/dl (12.0-16.0); Mean Corpuscular Hemoglobin 32.3 pg (25.0-34.0); Mean Corpuscular Hgb Conc 35.3 g/dL (32.0-36.0); Mean Corpuscular Volume 91.6 fL (80.0-100.0); Mean Platelet Volume 8.6 fL (9.4-12.3); Platelet Count 214 K/uL (130-400); RDW Coefficient of Variation 11.9 % (11.5-14.5); Red Blood Count 3.93 M/uL (3.93-5.22); White Blood Count 5.73 K/ul (4.8-10.8)
[2022-03-13 09:02] LABS: BUN Creatinine Ratio 27.3 (10-20); Calcium 9.1 mg/dl (8.5-10.1); Creatinine Clr Calc Pharmacy 61.7 ml/min; Est GFR (African American) 92.7 ml/min; Potassium 4.4 mmol/L (3.5-5.1)
[2022-03-13] MEDS ORDERED: traMADol HCL 50 MG TABLET PO STA (11:23)
--- NOTE | 2022-03-13 11:24 | Hospitalist Progress Note ---
Date of Service March 13, 2022 Assessment & Plan (1) Acute hyponatremia: Plan: Acute on chronic hyponatremia -Not currently symptomatic at her current sodium level - Patient with low serum NA, low serum osmo and urine osmo 380. Decrease solute intake in the setting of diuresis and increase free water intake. May have component of SIADH with pain - TSH normal - AM random cortisol 12 - No change to serum NA this morning- free water restrict, and fluid restrict to 1400ml add 1 GM salt tabs TID with meals -LACI stocking ordered to help with her lower extremity edema -AM BMP, mag, and phos (2) Compression fracture: Plan: Patient with fall earlier in the month. She had plain films performed at that time - -indeterminant age of T2 endplate fracture - remains with pain to back- lower thorax into lumbar - will obtain CT scan of thoraco/lumbar - pain control Tylenol, Lidocaine patch added and will try low dose of tramadol (25mg) - if this helps continue low dose tramadol - she would like to avoid heavy narcotics (3) Constipation: Plan: -Patient has been severely constipated for approximately 3 weeks -CT yesterday and KUB today negative for obstruction -Will continue a heavy oral bowel regimen along with Fleet enemas, if no bowel movement by tomorrow morning she is willing to try manual disimpaction - add MOM - liquid stool with gas noted - she feel symptomatically improved (4) Paroxysmal atrial fibrillation: Plan: -Continue eliquis, and diltiazem - rate controlled (5) Hypertension: Plan: Hold diuretics at this time (6) Hyperlipidemia: Plan: - Continue statin (7) Abnormal urinalysis: Plan: -ED gave patient a dose of ceftriaxone for a dirty UA but the patient has been afebrile, no leukocytosis, and no urinary symptoms -Hold additional abx for now and follow urine cultures - Agree UA on admission heavy with epis- continue to follow- hold abx. Admission and Anticipated Discharge Date Admission Date: March 12, 2022 Supervising Physician Co-Signing Physician Notes KAREN Supervision Note: I did not personally see or examine the patient today, but I verified all bunn points of KAREN Gross's assessment and plan with the following exceptions/additions: None Subjective 86 YOF HD # 1 admission for constipation associated with hyponatremia. Constipation she feels is from pain medication and not eating after she fell and sustained a compression fracture earlier in the month. Patient NA levels have been decreasing, and she endorses to originally trying to drink water with her constipation. She was then instructed to not drink water so was drinking prune juice and orange juice. She endorses not having much food intake as well. Her labs are reviewed, diuretics held. Continue work-up for pain control for her compression fracture. She is out of bed to chair. Review of Systems Review of Systems: REVIEW OF SYSTEMS: Constitutional: No fever, sweats or chills Eyes: No diplopia, no worsening or blurred vision ENT: (+) difficulty hearing, no trouble swallowing Respiratory: No cough, sputum, dyspnea at rest or on exertion Cardiovascular: No chest pain, tightness or palpitations Abdomen: (+) constipation pain, No nausea, vomiting, diarrhea or constipation Musculoskeletal: (+) lower back joint pain, no calf pain, swelling Neurologic: No weakness, numbness/tingling, or balance problems Psychiatric: No anxiety or depression Skin: No rash or itch Physical Exam Physical Exam: PHYSICAL EXAM: General: awake, alert, no apparent distress Head: Normocephalic, atraumatic ENT: PERRL, EOMI, no pharyngeal exudate, mucous membranes dry Neuro: AAO x 3, speech clear and appropriate, strength intact bilaterally 5/5, sensation intact and equal all extremities and dermatomes, no pronator drift Chest: equal rise and fall of the chest, no accessory muscle use, no heaves or thrills, Clear to auscultation, on room air, Cardiac: Regular rate and rhythm, telemetry reviewed, skin warm dry, cap refill <3 seconds, peripheral pulses +2 no JVD, no murmur, no edema GI: NABS x 4 quadrants, soft, nontender to palpation, no rebound, guarding or tenderness : Spontaneously voiding, no pain, no CVA tenderness, MSK- tender to palpation lower lumbar spine, no radicular symptoms Psych: Normal mood and affect Skin: no rash or erythema Results & Data Results & Data ([facility]) Vital Signs (Past 12 Hours) Vital Signs Temp Pulse Resp BP Pulse Ox O2 Del Method 03/13/22 08:01 36.5 C 72 18 164/77 H 99 Room Air Laboratory Results Laboratory Results - last 24 hr 09/03/12/22 03/12/22 16:34 16:34 16:34 WBC 6.06 RBC 4.50 Hgb 14.3 Hct 41.5 MCV 92.2 MCH 31.8 MCHC 34.5 RDW Std Deviation 40.0 RDW Coeff of Jason 11.8 Plt Count 253 MPV 8.7 L Immature Gran % (Auto) 0.2 Neut % (Auto) 65.2 Lymph % (Auto) 23.9 Mcleod % (Auto) 9.2 Eos % (Auto) 1.2 Baso % (Auto) 0.3 Neut # (Auto) 3.95 Lymph # (Auto) 1.45 Mcleod # (Auto) 0.56 Eos # (Auto) 0.07 Baso # (Auto) 0.02 Immature Gran # (Auto) 0.01 PT 10.5 INR 1.0 APTT 30.8 PTT Ratio 1.1 Sodium Potassium Chloride Carbon Dioxide Anion Gap BUN Creatinine Est Cr Clr Drug Dosing Est GFR ( Amer) Est GFR (Non-Af Amer) BUN/Creatinine Ratio Glucose Osmolality 265 L Calcium Total Bilirubin AST ALT Alkaline Phosphatase Troponin I High Sens Total Protein Albumin Globulin Albumin/Globulin Ratio Lipase TSH Cortisol AM Sample Urine Color Urine Appearance Urine pH Ur Specific Marion Urine Protein Urine Glucose (UA) Urine Ketones Urine Blood Urine Nitrite Urine Bilirubin Urine Urobilinogen Ur Leukocyte Esterase Urine WBC (Auto) Urine RBC (Auto) U Hyaline Cast (Auto) U Epithel Cells (Auto) Urine Bacteria (Auto) Urine Osmolality Ur Random Sodium SARS-CoV-2, RNA, NAAT 03/12/22 03/12/22 03/12/22 16:34 17:33 17:33 WBC RBC Hgb Hct MCV MCH MCHC RDW Std Deviation RDW Coeff of Jason Plt Count MPV Immature Gran % (Auto) Neut % (Auto) Lymph % (Auto) Mcleod % (Auto) Eos % (Auto) Baso % (Auto) Neut # (Auto) Lymph # (Auto) Mcleod # (Auto) Eos # (Auto) Baso # (Auto) Immature Gran # (Auto) PT INR APTT PTT Ratio Sodium 121 L Potassium 4.7 Chloride 86 L Carbon Dioxide 29 Anion Gap 6 BUN 26 H Creatinine 0.73 Est Cr Clr Drug Dosing Not Reportable Est GFR ( Amer) 86.4 Est GFR (Non-Af Amer) 74.6 BUN/Creatinine Ratio 35.6 H Glucose 110 H Osmolality Calcium 10.5 H Total Bilirubin 0.5 AST 19 ALT 11 Alkaline Phosphatase 81 Troponin I High Sens 4.8 Total Protein 7.3 Albumin 4.4 Globulin 2.9 Albumin/Globulin Ratio 1.5 Lipase 28 TSH Cortisol AM Sample Urine Color Yellow Urine Appearance Clear Urine pH 7.5 Ur Specific Marion 1.012 Urine Protein Negative Urine Glucose (UA) Negative Urine Ketones Negative Urine Blood Trace H Urine Nitrite Negative Urine Bilirubin Negative Urine Urobilinogen Negative Ur Leukocyte Esterase 3+ H Urine WBC (Auto) 10-30 H Urine RBC (Auto) 5-10 H U Hyaline Cast (Auto) 0 U Epithel Cells (Auto) 20-30 H Urine Bacteria (Auto) 1+ H Urine Osmolality 380 L Ur Random Sodium SARS-CoV-2, RNA, NAAT 03/12/22 03/12/22 03/13/22 17:33 17:47 00:40 WBC RBC Hgb Hct MCV MCH MCHC RDW Std Deviation RDW Coeff of Jason Plt Count MPV Immature Gran % (Auto) Neut % (Auto) Lymph % (Auto) Mcleod % (Auto) Eos % (Auto) Baso % (Auto) Neut # (Auto) Lymph # (Auto) Mcleod # (Auto) Eos # (Auto) Baso # (Auto) Immature Gran # (Auto) PT INR APTT PTT Ratio Sodium 123 L Potassium Chloride Carbon Dioxide Anion Gap BUN Creatinine Est Cr Clr Drug Dosing Est GFR ( Amer) Est GFR (Non-Af Amer) BUN/Creatinine Ratio Glucose Osmolality Calcium Total Bilirubin AST ALT Alkaline Phosphatase Troponin I High Sens Total Protein Albumin Globulin Albumin/Globulin Ratio Lipase TSH Cortisol AM Sample Urine Color Urine Appearance Urine pH Ur Specific Marion Urine Protein Urine Glucose (UA) Urine Ketones Urine Blood Urine Nitrite Urine Bilirubin Urine Urobilinogen Ur Leukocyte Esterase Urine WBC (Auto) Urine RBC (Auto) U Hyaline Cast (Auto) U Epithel Cells (Auto) Urine Bacteria (Auto) Urine Osmolality Ur Random Sodium 68 SARS-CoV-2, RNA, NAAT NEGATIVE 03/13/22 03/13/22 03/13/22 08:22 08:22 08:22 WBC 5.73 RBC 3.93 Hgb 12.7 Hct 36.0 MCV 91.6 MCH 32.3 MCHC 35.3 RDW Std Deviation 40.0 RDW Coeff of Jason 11.9 Plt Count 214 MPV 8.6 L Immature Gran % (Auto) Neut % (Auto) Lymph % (Auto) Mcleod % (Auto) Eos % (Auto) Baso % (Auto) Neut # (Auto) Lymph # (Auto) Mcleod # (Auto) Eos # (Auto) Baso # (Auto) Immature Gran # (Auto) PT INR APTT PTT Ratio Sodium Potassium Chloride Carbon Dioxide Anion Gap BUN Creatinine Est Cr Clr Drug Dosing Est GFR ( Amer) Est GFR (Non-Af Amer) BUN/Creatinine Ratio Glucose Osmolality Calcium Total Bilirubin AST ALT Alkaline Phosphatase Troponin I High Sens Total Protein Albumin Globulin Albumin/Globulin Ratio Lipase TSH Pending Cortisol AM Sample 12.74 Urine Color Urine Appearance Urine pH Ur Specific Marion Urine Protein Urine Glucose (UA) Urine Ketones Urine Blood Urine Nitrite Urine Bilirubin Urine Urobilinogen Ur Leukocyte Esterase Urine WBC (Auto) Urine RBC (Auto) U Hyaline Cast (Auto) U Epithel Cells (Auto) Urine Bacteria (Auto) Urine Osmolality Ur Random Sodium SARS-CoV-2, RNA, NAAT 03/13/22 08:22 WBC RBC Hgb Hct MCV MCH MCHC RDW Std Deviation RDW Coeff of Jason Plt Count MPV Immature Gran % (Auto) Neut % (Auto) Lymph % (Auto) Mcleod % (Auto) Eos % (Auto) Baso % (Auto) Neut # (Auto) Lymph # (Auto) Mcleod # (Auto) Eos # (Auto) Baso # (Auto) Immature Gran # (Auto) PT INR APTT PTT Ratio Sodium 121 L Potassium 4.4 Chloride 88 L Carbon Dioxide 28 Anion Gap 5 BUN 18 Creatinine 0.66 Est Cr Clr Drug Dosing 61.7 Est GFR ( Amer) 92.7 Est GFR (Non-Af Amer) 80.0 BUN/Creatinine Ratio 27.3 H Glucose 93 Osmolality Calcium 9.1 Total Bilirubin AST ALT Alkaline Phosphatase Troponin I High Sens Total Protein Albumin Globulin Albumin/Globulin Ratio Lipase TSH Cortisol AM Sample Urine Color Urine Appearance Urine pH Ur Specific Marion Urine Protein Urine Glucose (UA) Urine Ketones Urine Blood Urine Nitrite Urine Bilirubin Urine Urobilinogen Ur Leukocyte Esterase Urine WBC (Auto) Urine RBC (Auto) U Hyaline Cast (Auto) U Epithel Cells (Auto) Urine Bacteria (Auto) Urine Osmolality Ur Random Sodium SARS-CoV-2, RNA, NAAT Diagnostic Findings KUB X-Ray 03/12/22 16:33 KUB HISTORY: Acute generalized abdominal pain pain COMPARISON: CT abdomen and pelvis 03/11/2022 FINDINGS: Moderate fecal retention. Gas-filled loops of bowel within the central abdomen are likely large bowel and have decreased from the prior study. No renal calculi. No ureteral calculi. No pneumoperitoneum or pneumatosis. Degenerative changes of the spine, pelvis and hips. The study is limited secondary to patient body habitus. Calcified uterine fibroid. No fracture. IMPRESSION: Suggested constipation with nonobstructive bowel gas pattern. ACT 112: Negative or not required by law. The above report was generated using voice recognition software. It may contain grammatical, syntax or spelling errors. Electronically signed by: Marcello Gonzalez M.D. 03/12/2022 5:09 PM Chest X-Ray 03/12/22 16:34 XR chest 1V portable CLINICAL HISTORY: pain COMPARISON STUDY: Chest CT August 08, 2009. Chest radiograph November 16, 2018. FINDINGS: Lung volumes are mildly diminished. No pneumothorax is noted. There is no definite pleural effusion. Blunting of the left costophrenic angle is likely chronic. Mild bibasilar opacities favor atelectasis. Cardiomediastinal silhouette is stable. No evidence for pulmonary edema. IMPRESSION: No acute cardiopulmonary findings. ACT 112: Negative or not required by law. Electronically signed by: Alonzo Crump M.D. 03/12/2022 4:56 PM Medications Administered Home Medications calcium citrate 315 mg calcium-vitamin D3 6.25 mcg (250 unit) tablet (Citracal + Vitamin D Maximum) 1 tab PO DAILY 04/10/20 [History Confirmed 03/11/22] ascorbic acid (vitamin C) 1,000 mg tablet (Vitamin C With Gill Hips) 1 g PO QAM 09/26/21 [History Confirmed 03/11/22] furosemide 20 mg tablet 10 mg PO DAILY #90 tabs 10/23/21 [Rx Confirmed 03/11/22] apixaban 5 mg tablet (Eliquis) 5 mg PO BID #180 tabs 02/03/22 [Rx Confirmed 03/11/22] diltiazem HCl 120 mg capsule,extended release 24 hr (Cartia XT) 120 mg PO DAILY 02/05/22 [History Confirmed 03/11/22] spironolactone 25 mg tablet 25 mg PO DAILY #90 tabs 02/16/22 [Rx Confirmed 03/11/22] ergocalciferol (vitamin D2) 1,250 mcg (50,000 unit) capsule 50,000 unit PO .COMPLEX 03/11/22 [History Confirmed 03/11/22] sennosides 8.6 mg-docusate sodium 50 mg tablet 1 tab-cap PO DAILY PRN constipation #60 tabs 03/11/22 [Rx] Active Medications Acetaminophen (Acetaminophen 325 Mg Tab) 650 mg PO Q4H PRN PRN Reason: pain/fever Stop: 04/11/22 23:09 Apixaban (Apixaban 5 Mg Tablet) 5 mg PO BID MICAH Stop: 04/11/22 23:09 Last Admin: 03/13/22 08:29 Dose: 5 mg Ascorbic Acid (Ascorbic Acid 500 Mg Tab) 1,000 mg PO QAM MICAH Stop: 04/12/22 08:59 Last Admin: 03/13/22 08:29 Dose: 1,000 mg Diltiazem HCl (Diltiazem Hcl 120 Mg Capcr) 120 mg PO DAILY MICAH Stop: 04/12/22 08:59 Last Admin: 03/13/22 08:29 Dose: 120 mg Lidocaine (Lidocaine 5% 1 Patch) 1 patch TD QAM MICAH Stop: 04/12/22 11:29 Magnesium Hydroxide (Magnesium Hydroxide Susp 30 Ml Udc) 30 ml PO Q6H PRN PRN Reason: Constipation Stop: 04/12/22 11:24 Miscellaneous (Remove Lidoderm Patch) 1 each N/A DAILY@2100 [facility] Stop: 04/12/22 20:59 Multivitamins/Minerals (Calcium 600mg + Vit D 400 Iu Tab) 1 tab PO DAILY MICAH Stop: 04/12/22 08:59 Last Admin: 03/13/22 08:29 Dose: 1 tab Polyethylene Glycol (Polyethylene (Miralax) 17 Gm Pack) 17 gm PO DAILY MICAH Stop: 04/13/22 08:59 Senna/Docusate Sodium (Docusate Sodium/Senna 50/8.6mg Tab) 1 tab PO BID MICAH Stop: 04/11/22 23:09 Last Admin: 03/13/22 08:29 Dose: 1 tab Sodium Chloride (Sodium Chloride 1 Gm Tablet) 1 gm PO TID MICAH Stop: 04/12/22 13:59 Apixaban (Apixaban 5 Mg Tablet) 5 mg PO BID MICAH Stop: 04/11/22 23:09 Last Admin: 03/13/22 08:29 Dose: 5 mg Documented By: Admin: 03/13/22 00:00 Dose: 5 mg Documented By: GEE Ascorbic Acid (Ascorbic Acid 500 Mg Tab) 1,000 mg PO QAM MICAH Stop: 04/12/22 08:59 Last Admin: 03/13/22 08:29 Dose: 1,000 mg Documented By: SYLVIA Diltiazem HCl (Diltiazem Hcl 120 Mg Capcr) 120 mg PO DAILY MICAH Stop: 04/12/22 08:59 Last Admin: 03/13/22 08:29 Dose: 120 mg Documented By: SYLVIA Multivitamins/Minerals (Calcium 600mg + Vit D 400 Iu Tab) 1 tab PO DAILY MICAH Stop: 04/12/22 08:59 Last Admin: 03/13/22 08:29 Dose: 1 tab Documented By: SYLVIA Senna/Docusate Sodium (Docusate Sodium/Senna 50/8.6mg Tab) 1 tab PO BID MICAH Stop: 04/11/22 23:09 Last Admin: 03/13/22 08:29 Dose: 1 tab Documented By: Admin: 03/13/22 00:01 Dose: 1 tab Documented By: GEE Discontinued Medications Sodium Chloride (Nss) 500 mls @ 999 mls/hr IV .Q31M STA Stop: 03/12/22 17:03 Last Infusion: 03/12/22 17:45 Dose: 0 mls/hr Documented By: [id number] Admin: 03/12/22 17:00 Dose: 999 mls/hr Documented By: [id number] Ceftriaxone Sodium (Rocephin) 2,000 mg in 70 mls @ 140 mls/hr IV NOW STA Stop: 03/12/22 19:47 Last Infusion: 03/12/22 23:47 Dose: 0 mls/hr Documented By: Admin: 03/12/22 19:44 Dose: 140 mls/hr Documented By: UMA Polyethylene Glycol (Polyethylene (Miralax) 17 Gm Pack) 17 gm PO BID MICAH Stop: 04/11/22 23:09 Last Admin: 03/13/22 08:21 Dose: 17 gm Documented By: Admin: 03/13/22 00:00 Dose: 17 gm Documented By: GEE Sodium Biphosphate/Sodium Phosphate (Sod Phosphate/Sod Biphosphate Enema 132 Ml Btl) 132 ml MI NOW STA Stop: 03/12/22 23:11 Last Admin: 03/13/22 00:16 Dose: 132 ml Documented By: GEE PG Care Time/CCT Total # of Minutes Spent Total Time Spent with Patient: Total time spent is greater than 50% in coordination of care (as documented) at patient's floor/unit and/or counseling patient: Coding Level of Care Code 67631 Subseq Hosp Care Lvl 3 Diagnoses Acute hyponatremia E87.1 Compression fracture Constipation K59.00 Constipation type: unspecified constipation type Paroxysmal atrial fibrillation I48.0 Hypertension I10 Hyperlipidemia E78.5 Abnormal urinalysis R82.90 (1) Constipation Constipation type: unspecified constipation type Qualified Code(s): K59.00 - Constipation, unspecified
[2022-03-13] MEDS ORDERED: MAGNESIUM HYDROXIDE SUSP 30 ML UDC PO PRN (11:25)
[2022-03-13] MEDS ORDERED: DOCUSATE SODIUM/SENNA 50/8.6MG TAB PO SCH (11:30)
--- NOTE | 2022-03-13 12:32 | Electrocardiogram Report ---
Test Reason : Blood Pressure : / mmHG Vent. Rate : 067 BPM Atrial Rate : 067 BPM P-R Int : 226 ms QRS Dur : 082 ms QT Int : 420 ms P-R-T Axes : 073 066 045 degrees QTc Int : 443 ms Sinus rhythm with 1st degree A-V block Otherwise normal ECG When compared with ECG of 16-NOV-2018 09:17, Premature atrial complexes are no longer Present WA interval has increased Confirmed by uLciano Gorman ([id number]) on 03/13/2022 12:32:01 PM Referred By: Eugene Bettencourt Confirmed By:Luciano Gorman
[2022-03-13] MEDS: LIDOCAINE 5% 1 PATCH TD SCH (12:34)
[2022-03-13] MEDS: SODIUM CHLORIDE 1 GM TABLET PO SCH ×2 (14:23→20:39)
--- NOTE | 2022-03-13 14:40 | CT Scan Report ---
CT LUMBAR SPINE WO CON CT THORACIC SPINE WO CON HISTORY: 86 years-old Female fall few weeks ago, pain into lumbar spine as well, acute low back pain status post fall. COMPARISON: CT thoracic spine of same day, CT abdomen and pelvis 03/11/2022, lumbar spine radiographs 03/03/2022. TECHNIQUE: Multiple axial CT images of the thoracic and lumbar spine were obtained without the use of IV contrast. A dose lowering technique was used consistent with the principals of HOLLY. FINDINGS: CT THORACIC: Cardiomegaly. Dilation of the pulmonary arteries suggestive of pulmonary arterial hypertension. Exten sive coronary artery calcifications. 4 mm solid nodule of the left upper lobe. Mild linear scarring v ersus atelectasis of the basal right lower lobe. 5 mm groundglass nodule of the right upper lobe, nesha ge 123. Central airways are patent. Moderate multilevel intervertebral disc space narrowing and spondylitic spurring with associated face t arthrosis. Age-indeterminate mild superior endplate compression deformity of the T4 vertebral body without retropulsion or acute fracture line. Additional mild superior endplate compression of the T7 vertebral body. T12 fracture as described below. CT LUMBAR: Trace pleural effusions. Subsegmental left basilar consolidation. Mild wall thickening of the distal esophagus. The study is degraded by respiratory motion artifact. Atherosclerosis of the aorta without aneurysm. Grade 1 anterolisthesis of 6 mm L4 on L5 is likely on a degenerative basis. 25% subacute superior end plate compression deformity of the T12 vertebral body is unchanged from the 03/03/2022 radiographs. 3 mm retropulsion. Paravertebral edema is noted without significant central canal or neural foraminal n arrowing. No acute fracture or subluxation of the lumbar spine. Severe L1-L2 with moderate L2-L3 inte rvertebral disc space narrowing. 15 degrees levoscoliosis measured from L2-L4. Severe lower lumbar fa cet arthrosis. Moderate degeneration of the SI joints. There is at least moderate central canal stenosis at L3-L4 secondary to posterior annular disc bulge with ligamentum flavum thickening and facet arthrosis. Mild to moderate bilateral neural foraminal na rrowing. Moderate central canal stenosis at L4-L5. IMPRESSION: 1. Subacute 25% superior endplate compression deformity of T12 with 3 mm retropulsion is unchanged fr om the 03/03/2022 lumbar spine radiographs. No significant associated central canal stenosis. 2. Mild superior endplate compression deformities of the T4 and T7 vertebral bodies are technically a ge-indeterminate however are favored to be chronic. 3. No acute fracture or subluxation of the lumbar spine. 4. Cardiomegaly with trace pleural effusions and right basilar atelectasis. 5. 5 mm groundglass nodule of the right upper lobe with 4 mm solid nodule of the left upper lobe. Fol low-up guidelines provided below. Please refer to below summary of Fleischner criteria recommendations for follow-up of incidental CT n odules (Rm Mcdowell, Guidelines for management of small pulmonary nodules detected on CT scans: A sta tement from the Fleischner Society, Radiology 237: [phone].) SOLID NODULES Solitary nodule size: <6 mm * Low risk patients: no follow-up needed * high risk patients: optional CT at 12 months Note: newly detected indeterminate nodule in persons 35 years of age or older. * Low risk patients: minimal or absent history of smoking and/or other known risk factors * high risk patients: history of smoking or of other known risk factors (e.g. first degree relative with lung cancer, or exposure to asbestos, radon, uranium) * if a nodule up to 8 mm is partly solid or is ground glass further follow-up is required after 24 m onths to exclude possible slow growing adenocarcinoma ([place]) SUBSOLID NODULES Solitary pure ground-glass nodule * nodule size <6 mm - no CT follow-up required * nodule size >=6 mm - follow-up CT at 6-12 months, then every 2 years until 5 years ACT 112: Negative or not required by law. The above report was generated using voice recognition software. It may contain grammatical, syntax o r spelling errors. Dictated: 03/13/2022 12:50 PM Transcribed: 03/13/2022 1:47 PM Jillian [id number] [facility] Electronically signed by: Marcello Gonzalez M.D. 03/13/2022 2:39 PM
[2022-03-14 07:19] LABS: Hematocrit (blood only) 37.5 % (34.1-44.9); Hemoglobin 13.1 g/dl (12.0-16.0); Mean Corpuscular Hemoglobin 31.8 pg (25.0-34.0); Mean Corpuscular Hgb Conc 34.9 g/dL (32.0-36.0); Mean Platelet Volume 8.8 fL (9.4-12.3); Platelet Count 228 K/uL (130-400); RDW Coefficient of Variation 11.9 % (11.5-14.5); RDW Standard Deviation 39.6 fL (36.4-46.3); Red Blood Count 4.12 M/uL (3.93-5.22); White Blood Count 4.76 K/ul (4.8-10.8)
[2022-03-14 08:14] LABS: BUN Creatinine Ratio 23.5 (10-20); Calcium 9.4 mg/dl (8.5-10.1); Creatinine Clr Calc Pharmacy 59.9 ml/min; Est GFR (African American) 91.8 ml/min; Est GFR (Non-African American) 79.2 ml/min; Potassium 4.3 mmol/L (3.5-5.1)
[2022-03-14] MEDS ORDERED: STAT IV STA ×2 (08:17→20:28)
[2022-03-14] MEDS ORDERED: SODIUM CHLORIDE 3 % 50 ML IV ONE ×3 (08:30→20:28)
[2022-03-14] MEDS: CALCIUM 600MG + VIT D 400 IU TAB PO SCH (09:01)
[2022-03-14] MEDS: SODIUM CHLORIDE 1 GM TABLET PO SCH ×3 (09:01→21:25)
[2022-03-14] MEDS: ASCORBIC ACID 500 MG TAB PO SCH (09:01)
[2022-03-14] MEDS: dilTIAZem HCL 120 MG CAPCR PO SCH (09:01)
[2022-03-14] MEDS: LIDOCAINE 5% 1 PATCH TD SCH (09:02)
[2022-03-14] MEDS: APIXABAN 5 MG TABLET PO SCH ×2 (09:02→21:25)
[2022-03-14] MEDS: DOCUSATE SODIUM/SENNA 50/8.6MG TAB PO SCH ×2 (09:02→21:28)
[2022-03-14] MEDS: POLYETHYLENE (MIRALAX) 17 GM PACK PO SCH (10:05)
[2022-03-14] MEDS ORDERED: bisacodyL 10 MG SUPP PR STA (10:51)
--- NOTE | 2022-03-14 10:58 | Hospitalist Progress Note ---
Date of Service March 14, 2022 Assessment & Plan (1) Acute hyponatremia: Plan: Acute on chronic hyponatremia -Not currently symptomatic at her current sodium level - Patient with low serum NA, low serum osmo and urine osmo 380. Decrease solute intake in the setting of diuresis and increase free water intake. 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 Will give 50ml bolus 3% saline and increase her salt tabs to 2GM TID. Incremental bolus of 3% until ~125. Follow bmp today. If no improvement could consider oral urea. (2) Compression fracture: Plan: Patient with fall earlier in the month. She had plain films performed at that time - -indeterminant age of T2 endplate fracture - remains with pain to back- lower thorax into lumbar - will obtain CT scan of thoraco/lumbar - pain control Tylenol, Lidocaine patch added and will try low dose of tramadol (25mg) - if this helps continue low dose tramadol - she would like to avoid heavy narcotics 03/14- pain still present but improved she did not notice any difference with the tramadol and would like to avoid. She feels she can manage with tylenol. - PT consultation, ambulation encouraged. Imaging completed yesterday of thoraco/lumbar spine via CT. -add calcitonin nasal spray ofr pain Subacute 25% superior endplate compression deformity of T12 with 3 mm retropulsion is unchanged from the 03/03/2022 lumbar spine radiographs. No significant associated central canal stenosis. Mild superior endplate compression deformities of the T4 and T7 vertebral bodies are technically age-indeterminate however are favored to be chronic. No acute fracture or subluxation of the lumbar spine. (3) Constipation: Plan: -Patient has been severely constipated for approximately 3 weeks -CT yesterday and KUB today negative for obstruction -Will continue a heavy oral bowel regimen along with Fleet enemas, if no bowel movement by tomorrow morning she is willing to try manual disimpaction - add MOM - liquid stool with gas noted - she feel symptomatically improved (4) Paroxysmal atrial fibrillation: Plan: -Continue eliquis, and diltiazem - rate controlled (5) Hypertension: Plan: Hold diuretics at this time (6) Hyperlipidemia: Plan: - Continue statin (7) Abnormal urinalysis: Plan: -ED gave patient a dose of ceftriaxone for a dirty UA but the patient has been afebrile, no leukocytosis, and no urinary symptoms -Hold additional abx for now and follow urine cultures - Agree UA on admission heavy with epis- continue to follow- hold abx. (8) Incidental pulmonary nodule: Plan: noted on imaging of CT of spine - 5 mm groundglass nodule of the right upper lobe with 4 mm solid nodule of the left upper lobe - Solitary nodule size: <6 mm * Low risk patients: no follow-up needed * high risk patients: optional CT at 12 months Low risk Admission and Anticipated Discharge Date Admission Date: March 12, 2022 Supervising Physician Co-Signing Physician Notes [employer]PER[employer] Supervision Note: I did not personally see or examine the patient today, but I verified all bunn points of KAREN Gross's assessment and plan with the following exceptions/additions: None Subjective 86 YOF HD # 2 admission for constipation associated with hyponatremia. Constipation she feels is from pain medication and not eating after she fell and sustained a compression fracture earlier in the month. Patient NA levels have been decreasing, and she endorses to originally trying to drink water with her constipation. She was placed on free water restriction and overall fluid restriction yesterday and 1GM salt tabs were added. Her NA level continued to decrease this morning to 119. Asymptomatic. Will give 50ml 3% saline now, increase salt tab to 2gm TID today. She states her back is still sore, however she was standing in room and sat down when i entered with no pain or restriction in movement. Imaging completed yesterday and reviewed. Review of Systems Review of Systems: REVIEW OF SYSTEMS: Constitutional: No fever, sweats or chills Eyes: No diplopia, no worsening or blurred vision ENT: (+) difficulty hearing, no trouble swallowing Respiratory: No cough, sputum, dyspnea at rest or on exertion Cardiovascular: No chest pain, tightness or palpitations Abdomen: (+) constipation pain, No nausea, vomiting, diarrhea or constipation Musculoskeletal: (+) lower back joint pain, no calf pain, swelling Neurologic: No weakness, numbness/tingling, or balance problems Psychiatric: No anxiety or depression Skin: No rash or itch Physical Exam Physical Exam: PHYSICAL EXAM: General: awake, alert, no apparent distress Head: Normocephalic, atraumatic ENT: PERRL, EOMI, no pharyngeal exudate, mucous membranes dry Neuro: AAO x 3, speech clear and appropriate, strength intact bilaterally 5/5, sensation intact and equal all extremities and dermatomes, no pronator drift Chest: equal rise and fall of the chest, no accessory muscle use, no heaves or thrills, Clear to auscultation, on room air, Cardiac: Regular rate and rhythm, telemetry reviewed, skin warm dry, cap refill <3 seconds, peripheral pulses +2 no JVD, no murmur, no edema GI: NABS x 4 quadrants, soft, nontender to palpation, no rebound, guarding or tenderness : Spontaneously voiding, no pain, no CVA tenderness, MSK- tender to palpation lower lumbar spine, no radicular symptoms Psych: Normal mood and affect Skin: no rash or erythema Results & Data Results & Data ([facility]) Vital Signs (Past 12 Hours) Vital Signs Temp Pulse Resp BP Pulse Ox O2 Del Method 03/14/22 06:15 36.4 C L 65 18 161/70 H 97 Room Air Laboratory Results Abnormal lab results 03/14/22 03/14/22 Range/Units 06:53 06:53 WBC 4.76 L (4.8-10.8) K/ul MPV 8.8 L (9.4-12.3) fL Sodium 119 L* (136-145) mmol/L Chloride 86 L (98-107) mmol/L BUN/Creatinine Ratio 23.5 H (10-20) PG Care Time/CCT Total # of Minutes Spent Total Time Spent with Patient: Total time spent is greater than 50% in coordination of care (as documented) at patient's floor/unit and/or counseling patient: Coding Level of Care Code 06836 Subseq Hosp Care Lvl 3 Diagnoses Acute hyponatremia E87.1 Compression fracture Constipation K59.00 Constipation type: unspecified constipation type Paroxysmal atrial fibrillation I48.0 Hypertension I10 Hyperlipidemia E78.5 Abnormal urinalysis R82.90 Incidental pulmonary nodule R91.1 (1) Constipation Constipation type: unspecified constipation type Qualified Code(s): K59.00 - Constipation, unspecified
[2022-03-14 11:51] LABS: BUN Creatinine Ratio 24.6 (10-20); Calcium 9.3 mg/dl (8.5-10.1); Creatinine Clr Calc Pharmacy 62.7 ml/min; Est GFR (African American) 93.2 ml/min; Est GFR (Non-African American) 80.4 ml/min; Potassium 4.1 mmol/L (3.5-5.1)
[2022-03-14] MEDS: CALCITONIN SALMON NA 200 IU/AC 3.7 ML BTL SCH (15:18)
[2022-03-14 16:21] LABS: BUN Creatinine Ratio 23.6 (10-20); Calcium 9.7 mg/dl (8.5-10.1); Creatinine Clr Calc Pharmacy 56.6 ml/min; Est GFR (African American) 87.9 ml/min; Est GFR (Non-African American) 75.8 ml/min; Potassium 4.9 mmol/L (3.5-5.1)
[2022-03-14 20:17] LABS: BUN Creatinine Ratio 21.7 (10-20); Calcium 9.1 mg/dl (8.5-10.1); Creatinine Clr Calc Pharmacy 49.1 ml/min; Est GFR (Non-African American) 63.9 ml/min; Potassium 4.7 mmol/L (3.5-5.1)
[2022-03-14] MEDS ORDERED: FUROSEMIDE INJ 20 MG/2 ML VIAL IV ONE (21:01)
[2022-03-14] MEDS: ACETAMINOPHEN 325 MG TAB PO PRN (21:25)
--- NOTE | 2022-03-14 21:31 | Communication Note ---
Date of Service: March 14, 2022 Informed that patient's Na level had returned at 118, unfortunately decreased from earlier today (was initially improving from 119 arrival level) despite salt tablets and fluid restriction. Went up to evaluate patient. Thankfully she feels well. Back pain ongoing - but improving. She reports that over the last several weeks, she has been getting in about 6-8 glasses of fluid a day, if not more; not drinking excessively but her account (she was actually told to do this by nephrology back in time for her chronic hyponatremia). She does report that since her accident a few weeks ago, she has had worsening peripheral edema and belly enlargement. Constipation noted. She can't lie flat secondary to her back injury, but isn't sure if she'd have issues with SOB if she did so. Does endorse having to lie in a recliner. No new cough. Exam significant for MMM, prominent JVP, appreciable abdominal distention, and 3+ pitting edema. Since her Na has actually dropped since admission, though minimally, and given her hypervolemic appearance on exam, do wonder if maybe her hypotonic hyponatremia may have some contribution from this. Her last TTE was reviewed - Grade II diastolic dysfunction, with moderately dilated LA, mildly dilated RA, interatrial bowing, mild-moderate MR, elevated RSVP (30-40). Kidney/liver function fine. Will trial Lasix 20mg IV x 1 and recheck BMP with BNP in 4 hours' time. If further drop, will help clarify picture and can plan to correct with small bolus(es) of 3% NaCl. May wish to consider JACINDA work-up in the future. Resident Activity Tracking Resident Involvement: Resident Care Provided Care Provided: Adult Hospital Medicine
[2022-03-15 01:11] LABS: BUN Creatinine Ratio 27.5 (10-20); Calcium 9.2 mg/dl (8.5-10.1); Est GFR (African American) 91.4 ml/min; Est GFR (Non-African American) 78.8 ml/min; Potassium 4.1 mmol/L (3.5-5.1)
[2022-03-15 03:00] LABS: BUN Creatinine Ratio 29.5 (10-20); Calcium 9.5 mg/dl (8.5-10.1); Creatinine Clr Calc Pharmacy 66.8 ml/min; Est GFR (African American) 95.1 ml/min; Est GFR (Non-African American) 82.1 ml/min; Magnesium 1.7 mg/dl (1.7-2.4); Potassium 4.2 mmol/L (3.5-5.1)
[2022-03-15 07:39] LABS: Calcium 9.5 mg/dl (8.5-10.1); Magnesium 1.8 mg/dl (1.7-2.4); Potassium 4.3 mmol/L (3.5-5.1)
[2022-03-15 07:45] LABS: BUN Creatinine Ratio 25.4 (10-20); Creatinine Clr Calc Pharmacy 60.8 ml/min; Est GFR (African American) 92.2 ml/min; Est GFR (Non-African American) 79.6 ml/min
[2022-03-15] MEDS: ASCORBIC ACID 500 MG TAB PO SCH (08:50)
[2022-03-15] MEDS: CALCIUM 600MG + VIT D 400 IU TAB PO SCH (08:50)
[2022-03-15] MEDS: dilTIAZem HCL 120 MG CAPCR PO SCH (08:50)
[2022-03-15] MEDS: APIXABAN 5 MG TABLET PO SCH ×2 (08:50→20:39)
[2022-03-15] MEDS: SODIUM CHLORIDE 1 GM TABLET PO SCH ×2 (08:50→14:33)
[2022-03-15] MEDS: DOCUSATE SODIUM/SENNA 50/8.6MG TAB PO SCH ×2 (08:51→20:38)
[2022-03-15] MEDS: POLYETHYLENE (MIRALAX) 17 GM PACK PO SCH (08:51)
[2022-03-15] MEDS: CALCITONIN SALMON NA 200 IU/AC 3.7 ML BTL SCH (08:51)
[2022-03-15] MEDS: LIDOCAINE 5% 1 PATCH TD SCH (08:51)
[2022-03-15 10:39] LABS: BUN Creatinine Ratio 20.5 (10-20); Calcium 9.6 mg/dl (8.5-10.1); Creatinine Clr Calc Pharmacy 52.2 ml/min; Est GFR (African American) 79.8 ml/min; Est GFR (Non-African American) 68.8 ml/min; Magnesium 1.8 mg/dl (1.7-2.4)
[2022-03-15] MEDS: DICLOFENAC SOD 1% GEL 100 GM TUBE EXT SCH ×2 (12:15→20:41)
--- NOTE | 2022-03-15 12:22 | Hospitalist Progress Note ---
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 She had plain films performed at that time - -indeterminant age of T2 endplate fracture - remains with pain to back- lower thorax into lumbar - obtained CT scan of thoraco/lumbar - pain control Tylenol, Lidocaine patch added and will try low dose of tramadol (25mg) - if this helps continue low dose tramadol - she would like to avoid heavy narcotics - 03/15 calcitonin intranasal added- unsure of benefit as patient states no change - discontinued lidocaine patch- changed to diclofenec gel with her heat pad - PT consulted appreciate assistance Subacute 25% superior endplate compression deformity of T12 with 3 mm retropulsion is unchanged from the 03/03/2022 lumbar spine radiographs. No significant associated central canal stenosis. Mild superior endplate compression deformities of the T4 and T7 vertebral bodies are technically age-indeterminate however are favored to be chronic. No acute fracture or subluxation of the lumbar spine. (3) Constipation: Plan: -Patient has been severely constipated for approximately 3 weeks -CT yesterday and KUB today negative for obstruction - Multiple large soft BM on 03/14 following bisacodyl suppository - (4) Paroxysmal atrial fibrillation: Plan: -Continue eliquis, and diltiazem - rate controlled (5) Hypertension: Plan: Continue diltiazem Blood pressures are controlled (6) Hyperlipidemia: Plan: Is intolerant to statins (7) Abnormal urinalysis: Plan: -ED gave patient a dose of ceftriaxone for a dirty UA but the patient has been afebrile, no leukocytosis, and no urinary symptoms -Hold additional abx for now and follow urine cultures - Agree UA on admission heavy with epis- continue to follow- hold abx. (8) Incidental pulmonary nodule: Plan: noted on imaging of CT of spine - 5 mm groundglass nodule of the right upper lobe with 4 mm solid nodule of the left upper lobe - Solitary nodule size: <6 mm * Low risk patients: no follow-up needed * high risk patients: optional CT at 12 months Low risk Admission and Anticipated Discharge Date Admission Date: March 12, 2022 Supervising Physician Co-Signing Physician Notes Tablets atCRNP Supervision Note: I did not personally see or examine the patient today, but I verified all bunn points of KAREN Gross's assessment and plan with the following exceptions/additions: 1800 sodium came up to 126 Will discontinue this time Follow BMP in the morning Give 1 g of IV magnesium for magnesium 1.8 Subjective 86 YOF HD # 3 admission for constipation associated with hyponatremia. Constipation she feels is from pain medication and not eating after she fell and sustained a compression fracture earlier in the month. Patient NA levels have been decreasing, and she endorses to originally trying to drink water with her constipation. She was placed on free water restriction and overall fluid restriction with increased. She received 2 doses of hypertonic saline on 03/14 with initial increase in her NA then followed by decrease. Noted that she had increase in lower extremity edema and bloating in her abdomen following second dose of 3%- she has been off her lasix and aldactone from home, so likely component of hypervolemic hypoosmolar hyponatremia- she received 20mg IV lasix overnight with increase in her serum NA levels to 122 in am and remained at 123 on two follow on labs. Will provide 20mg Lasix at 1600 today and continue to follow her correction. Continue salt tabs for likely SIADH component. Review of Systems Review of Systems: REVIEW OF SYSTEMS: Constitutional: No fever, sweats or chills Eyes: No diplopia, no worsening or blurred vision ENT: (+) difficulty hearing, no trouble swallowing Respiratory: No cough, sputum, dyspnea at rest or on exertion Cardiovascular: No chest pain, tightness or palpitations Abdomen: (+) constipation pain, No nausea, vomiting, diarrhea or constipation Musculoskeletal: (+) lower back joint pain, no calf pain, swelling Neurologic: No weakness, numbness/tingling, or balance problems Psychiatric: No anxiety or depression Skin: No rash or itch Physical Exam Physical Exam: PHYSICAL EXAM: General: awake, alert, no apparent distress Head: Normocephalic, atraumatic ENT: PERRL, EOMI, no pharyngeal exudate, mucous membranes dry Neuro: AAO x 3, speech clear and appropriate, strength intact bilaterally 5/5, sensation intact and equal all extremities and dermatomes, no pronator drift Chest: equal rise and fall of the chest, no accessory muscle use, no heaves or thrills, Clear to auscultation, on room air, Cardiac: Regular rate and rhythm, telemetry reviewed, skin warm dry, cap refill <3 seconds, peripheral pulses +2 no JVD, +2 edema to lower legs and +3 in her feet, this is worse than yesterday, however she slept in chair all night secondary to her back pain GI: NABS x 4 quadrants, soft, nontender to palpation, no rebound, guarding or tenderness : Spontaneously voiding, no pain, no CVA tenderness, MSK- tender to palpation lower lumbar spine, no radicular symptoms Psych: Normal mood and affect Skin: no rash or erythema Results & Data Results & Data ([facility]) Vital Signs (Past 12 Hours) Vital Signs Temp Pulse Resp BP Pulse Ox O2 Del Method 03/15/22 07:35 36.3 C L 70 18 147/76 H 99 Room Air Laboratory Results Abnormal lab results 03/14/22 03/14/22 03/14/22 Range/Units 15:44 19:14 Unknown Sodium 120 L 118 L* (136-145) mmol/L Chloride 88 L 88 L (98-107) mmol/L BUN/Creatinine Ratio 23.6 H 21.7 H (10-20) Glucose 105 H 118 H (70-99(Fasting)) mg/dl Osmolality (280-300) mOsm/kg Urine Osmolality 408 L (500-800) mOsm/kg 03/15/22 03/15/22 03/15/22 Range/Units 00:22 02:18 06:37 Sodium 121 L 120 L (136-145) mmol/L Chloride 89 L 87 L (98-107) mmol/L BUN/Creatinine Ratio 27.5 H 29.5 H (10-20) Glucose 110 H 107 H (70-99(Fasting)) mg/dl Osmolality 261 L (280-300) mOsm/kg Urine Osmolality (500-800) mOsm/kg 03/15/22 03/15/22 Range/Units 06:37 10:01 Sodium 122 L 123 L (136-145) mmol/L Chloride 88 L 88 L (98-107) mmol/L BUN/Creatinine Ratio 25.4 H 20.5 H (10-20) Glucose 105 H (70-99(Fasting)) mg/dl Osmolality (280-300) mOsm/kg Urine Osmolality (500-800) mOsm/kg Medications Administered Home Medications calcium citrate 315 mg calcium-vitamin D3 6.25 mcg (250 unit) tablet (Citracal + Vitamin D Maximum) 1 tab PO DAILY 04/10/20 [History Confirmed 03/15/22] ascorbic acid (vitamin C) 1,000 mg tablet (Vitamin C With Gill Hips) 1 g PO QAM 09/26/21 [History Confirmed 03/15/22] furosemide 20 mg tablet 10 mg PO DAILY #90 tabs 10/23/21 [Rx Confirmed 03/15/22] apixaban 5 mg tablet (Eliquis) 5 mg PO BID #180 tabs 02/03/22 [Rx Confirmed 03/15/22] diltiazem HCl 120 mg capsule,extended release 24 hr (Cartia XT) 120 mg PO DAILY 02/05/22 [History Confirmed 03/15/22] spironolactone 25 mg tablet 25 mg PO DAILY #90 tabs 02/16/22 [Rx Confirmed 03/11/22] ergocalciferol (vitamin D2) 1,250 mcg (50,000 unit) capsule 50,000 unit PO .COMPLEX 03/11/22 [History Confirmed 03/15/22] sennosides 8.6 mg-docusate sodium 50 mg tablet 1 tab-cap PO DAILY PRN constipation #60 tabs 03/11/22 [Rx] Active Medications Acetaminophen (Acetaminophen 325 Mg Tab) 650 mg PO Q4H PRN PRN Reason: pain/fever Stop: 04/11/22 23:09 Last Admin: 03/14/22 21:25 Dose: 650 mg Apixaban (Apixaban 5 Mg Tablet) 5 mg PO BID [facility] Stop: 04/11/22 23:09 Last Admin: 03/15/22 08:50 Dose: 5 mg Ascorbic Acid (Ascorbic Acid 500 Mg Tab) 1,000 mg PO QAM MICAH Stop: 04/12/22 08:59 Last Admin: 03/15/22 08:50 Dose: 1,000 mg Calcitonin [place] (Calcitonin [place] Na 200 Iu/Ac 3.7 Ml Btl) 1 sprays NA DAILY MICAH Stop: 04/13/22 14:29 Last Admin: 03/15/22 08:51 Dose: 1 sprays Diclofenac Sodium (Diclofenac Sod 1% Gel 100 Gm Tube) 2 gm EXT BID MICAH; Protocol Stop: 04/14/22 10:29 Last Admin: 03/15/22 12:15 Dose: 2 gm Diltiazem HCl (Diltiazem Hcl 120 Mg Capcr) 120 mg PO DAILY MICAH Stop: 04/12/22 08:59 Last Admin: 03/15/22 08:50 Dose: 120 mg Furosemide (Furosemide Inj 20 Mg/2 Ml Vial) 20 mg IV ONE ONE Stop: 03/15/22 16:01 Magnesium Hydroxide (Magnesium Hydroxide Susp 30 Ml Udc) 30 ml PO Q6H PRN PRN Reason: Constipation Stop: 04/12/22 11:24 Multivitamins/Minerals (Calcium 600mg + Vit D 400 Iu Tab) 1 tab PO DAILY MICAH Stop: 04/12/22 08:59 Last Admin: 03/15/22 08:50 Dose: 1 tab Polyethylene Glycol (Polyethylene (Miralax) 17 Gm Pack) 17 gm PO DAILY MICAH Stop: 04/13/22 08:59 Last Admin: 03/15/22 08:51 Dose: Not Given Senna/Docusate Sodium (Docusate Sodium/Senna 50/8.6mg Tab) 1 tab PO BID [facility] Stop: 04/11/22 23:09 Last Admin: 03/15/22 08:51 Dose: Not Given Sodium Chloride (Sodium Chloride 1 Gm Tablet) 2 gm PO TID MICAH Stop: 04/13/22 08:59 Last Admin: 03/15/22 08:50 Dose: 2 gm PG Care Time/CCT Total # of Minutes Spent Total Time Spent with Patient: Total time spent is greater than 50% in coordination of care (as documented) at patient's floor/unit and/or counseling patient: Coding Level of Care Code 39894 Subseq Hosp Care Lvl 3 Diagnoses Acute hyponatremia E87.1 Compression fracture Constipation K59.00 Constipation type: unspecified constipation type Paroxysmal atrial fibrillation I48.0 Hypertension I10 Hyperlipidemia E78.5 Abnormal urinalysis R82.90 Incidental pulmonary nodule R91.1 (1) Constipation Constipation type: unspecified constipation type Qualified Code(s): K59.00 - Constipation, unspecified
[2022-03-15] MEDS ORDERED: ERGOCALCIFEROL 50,000 UNITS 1250 MCG CAP PO SCH (14:30)
[2022-03-15 14:38] LABS: BUN Creatinine Ratio 17.9 (10-20); Calcium 9.5 mg/dl (8.5-10.1); Creatinine Clr Calc Pharmacy 36.4 ml/min; Est GFR (African American) 51.5 ml/min; Est GFR (Non-African American) 44.4 ml/min; Magnesium 1.7 mg/dl (1.7-2.4); Potassium 4.2 mmol/L (3.5-5.1)
[2022-03-15] MEDS ORDERED: FUROSEMIDE INJ 20 MG/2 ML VIAL IV ONE (16:00)
[2022-03-15] MEDS: ACETAMINOPHEN 325 MG TAB PO PRN ×2 (17:00→21:57)
[2022-03-15 18:33] LABS: Calcium 9.6 mg/dl (8.5-10.1); Creatinine Clr Calc Pharmacy 33.9 ml/min; Est GFR (African American) 47.4 ml/min; Est GFR (Non-African American) 40.9 ml/min; Magnesium 1.8 mg/dl (1.7-2.4); Potassium 4.6 mmol/L (3.5-5.1)
[2022-03-15] MEDS ORDERED: MAGNESIUM SULFATE / D5W 1 GM/100 ML BAG IV ONE (19:29)
[2022-03-16 06:40] LABS: Basophils # (auto) 0.02 K/uL (0-0.2); Basophils % (auto) 0.4 %; Eosinophils # (auto) 0.12 K/uL (0-0.50); Eosinophils % (auto) 2.4 %; Hematocrit (blood only) 35.4 % (34.1-44.9); Hemoglobin 12.3 g/dl (12.0-16.0); Immature Granulocytes # (auto) 0.02 K/uL (0.00-0.02); Immature Granulocytes % (auto) 0.4 %; Lymphocytes % (auto) 38.4 %; Mean Corpuscular Hemoglobin 31.5 pg (25.0-34.0); Mean Corpuscular Hgb Conc 34.7 g/dL (32.0-36.0); Mean Corpuscular Volume 90.8 fL (80.0-100.0); Mean Platelet Volume 8.9 fL (9.4-12.3); Monocytes # (auto) 0.55 K/uL (0.24-0.82); Monocytes % (auto) 11.1 %; Neutrophils # (auto) 2.34 K/uL (1.4-6.5); Neutrophils % (auto) 47.3 %; Platelet Count 227 K/uL (130-400); RDW Coefficient of Variation 11.9 % (11.5-14.5); RDW Standard Deviation 39.6 fL (36.4-46.3); White Blood Count 4.95 K/ul (4.8-10.8)
[2022-03-16 08:08] LABS: Calcium 9.2 mg/dl (8.5-10.1); Magnesium 1.9 mg/dl (1.7-2.4); Potassium 3.8 mmol/L (3.5-5.1)
[2022-03-16 08:18] LABS: BUN Creatinine Ratio 31.6 (10-20); Creatinine Clr Calc Pharmacy 53.6 ml/min; Est GFR (African American) 82.3 ml/min
[2022-03-16] MEDS: ACETAMINOPHEN 325 MG TAB PO PRN ×2 (08:24→13:51)
[2022-03-16] MEDS: CALCITONIN SALMON NA 200 IU/AC 3.7 ML BTL SCH (08:25)
[2022-03-16] MEDS: APIXABAN 5 MG TABLET PO SCH ×2 (08:25→20:02)
[2022-03-16] MEDS: CALCIUM 600MG + VIT D 400 IU TAB PO SCH (08:26)
[2022-03-16] MEDS: dilTIAZem HCL 120 MG CAPCR PO SCH (08:27)
[2022-03-16] MEDS: ASCORBIC ACID 500 MG TAB PO SCH (08:27)
[2022-03-16] MEDS: DICLOFENAC SOD 1% GEL 100 GM TUBE EXT SCH (08:28)
[2022-03-16] MEDS: DOCUSATE SODIUM/SENNA 50/8.6MG TAB PO SCH (08:31)
[2022-03-16] MEDS: POLYETHYLENE (MIRALAX) 17 GM PACK PO SCH (08:35)
[2022-03-16] MEDS ORDERED: SODIUM CHLORIDE 1 GM TABLET PO SCH (09:00)
[2022-03-16] MEDS ORDERED: FUROSEMIDE 20 MG TAB PO SCH (09:15)
[2022-03-16] MEDS ORDERED: STAT IV STA ×3 (10:11→22:06)
[2022-03-16] MEDS ORDERED: POTASSIUM CHLORIDE CRTAB 20 MEQ TABCR PO STA (10:12)
--- NOTE | 2022-03-16 10:23 | Nephrology Consultation ---
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 There is evidence of fluid retention. Urine osmolality during admission ~400. Document strict I/O. Daily fluid restriction of 1 L. Goal is to maintain slig htly negative fluid balance. LE compression stocking and feet elevated while in bed. Continue furosemide -- 20 mg provided this AM. Additional saline will be provided while monitoring rate of correction. A 100 ml bolus of 3% saline has been ordered in additional to 20 mEq KCl. I will repeat a metabolic profile this afternoon. Anticipated improvement ~2 mEq/L with therapy. (2) Hypertension: BP acceptable. Furosemide to encourage slightly negative fluid balance. Remains on diltiazem 120 mg daily. (3) Compression fracture: Pain controlled. History of Present Illness Reason for Consultation: Hyponatremia Requesting Physician: Dorie Garcia MD Attending Physician: Dorie Garcia MD History of Present Illness Mrs. Trisha Pickard is an 86 year-old female with chronic hyponatremia. Baseline serum sodium over the past year has been ~1291-34 mmol/L. She is followed in the outpatient nephrology clinic by Dr. Bearden. In October, HCTZ was switched to furosemide. Mrs. Pickard is maintained on a high sodium diet. She recently saw Dr. Bearden in January and was found to be doing well at that time. Unfortunately, Mrs. Pickard suffered at fall in early February resulting in a thoracic compression fracture. She presented to [facility] on March 11 with constipation. Serum sodium was found to be 122 mmol/L. She declined admission but was referred back to the hospital after follow up outpatient labs revealed progressive worsening of her dysnatremia. Date of admission was 03/12. Serum sodium has increased from 118 mmol/L to 124 mmol/L since admission. Treatment has included free water restriction, oral NaCl, and furosemide. 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 Mrs. Pickard has never been previously hospitalized due to low sodium. She is tolerating the free water restriction well. I/O have not been accurately documented. Appetite is fair. She is moving her bowels now and reports liquid bowel movements yesterday. She denies any symptoms from her dysnatremia. She is experiencing some increased LE edema and abdominal distention as well as bloating. She denies significant pain. She continues to struggle with mobility and some generalized weakness. Allergies Allergy/AdvReac Type Severity Reaction Status Date / Time iodine Allergy UNK Verified 03/11/22 16:05 Penicillins AdvReac Unknown Verified 03/11/22 16:05 Tfaudnu-[id number]-BjR Reductase AdvReac Muscle Pain Verified 03/11/22 16:05 Inhibitor [Qrhadsq-Jlt-Oji Reductase Inhibitor] Home Medications Medication Instructions Recorded Confirmed Type calcium citrate 315 mg 1 tab PO DAILY 04/10/20 03/15/22 History calcium-vitamin D3 6.25 mcg (250 unit) tablet (Citracal + Vitamin D Maximum) ascorbic acid (vitamin C) 1,000 mg 1 g PO QAM 09/26/21 03/15/22 History tablet (Vitamin C With Gill Hips) furosemide 20 mg tablet 10 mg PO DAILY #90 tabs 10/23/21 03/15/22 Rx apixaban 5 mg tablet (Eliquis) 5 mg PO BID #180 tabs 02/03/22 03/15/22 Rx diltiazem HCl 120 mg 120 mg PO DAILY 02/05/22 03/15/22 History capsule,extended release 24 hr (Cartia XT) spironolactone 25 mg tablet 25 mg PO DAILY #90 tabs 02/16/22 03/11/22 Rx ergocalciferol (vitamin D2) 1,250 50,000 unit PO .COMPLEX 03/11/22 03/15/22 History mcg (50,000 unit) capsule sennosides 8.6 mg-docusate sodium 1 tab-cap PO DAILY PRN 03/11/22 Rx 50 mg tablet constipation #60 tabs Patient History Medical History Arthritis Compression fracture Cystocele Encounter for pre-operative examination H/O uterine leiomyoma Hypertension Monoclonal gammopathy of unknown significance (MGUS) MVP (mitral valve prolapse) Post-menopausal bleeding Presence of pessary Second degree uterine prolapse Skin rash Urinary incontinence Surgical History H/O cervical polypectomy 2008 H/O inguinal hernia repair Left - 1999 History of elbow surgery "Broken elbow repair" - 11/1990 w/ Dr. Starr History of tonsillectomy Family History Mother Myocardial infarction Father Myocardial infarction Sister Breast cancer Other Asthma No family history of adverse response to anesthesia No family history of bleeding disorder Denies family history of Ovarian cancer Colorectal cancer Social History Smoking Status: Never smoker Second Hand Exposure: No; Do You Dip or Chew Tobacco: No; Hx Alcohol Use: No Hx Substance Use: No Preferred Language: Pry[place]in[place] Communication Ability: Effective Air Value Tester Required: No Beliefs That Will Affect Care: None marital status: Current Living Situation: Spouse How many Children do You have: 2 Other Information That Helps Us Care for You: No Feels Safe at Home: Yes Safety Concerns: Feels Safe At This Time Assistive Devices: Cane Review of Systems Review of Systems: All systems reviewed & are unremarkable except as noted in HPI & below Physical Exam Constitutional: well developed and + frail appearing; no acute distress Eyes: + anicteric sclerae; no corneal abnormality ENMT: Mouth: no oral mucosal abnormality and oral mucous membranes not dry Neck: normal visual inspection and trachea midline Respiratory: normal respiratory effort Auscultation: lungs clear to auscultation bilaterally Cardiovascular: Rate/Rhythm: + bradycardic Heart Sounds: normal S1 and normal S2 Extremities: no edema Musculoskeletal: Extremities: no cyanosis and no clubbing Skin: + turgor decreased; no lesions Neurologic: Motor/Sensory: no tremor and no asterixis Psychiatric: Orientation: alert and oriented x 3 Results & Data ([facility]) Vital Signs (Past 12 Hours) Vital Signs Temp Pulse Resp BP Pulse Ox O2 Del Method 03/16/22 07:03 36.5 C 67 16 121/69 99 Room Air Laboratory Results Laboratory Results - last 24 hr 03/15/22 03/15/22 03/15/22 10:01 13:43 18:02 WBC RBC Hgb Hct MCV MCH MCHC RDW Std Deviation RDW Coeff of Jason Plt Count MPV Immature Gran % (Auto) Neut % (Auto) Lymph % (Auto) [place] % (Auto) Eos % (Auto) Baso % (Auto) Neut # (Auto) Lymph # (Auto) [place] # (Auto) Eos # (Auto) Baso # (Auto) Immature Gran # (Auto) Sodium 123 L 123 L 126 L Potassium 4.0 4.2 4.6 Chloride 88 L 89 L 86 L Carbon Dioxide 27 28 26 Anion Gap 8 6 14 H BUN 16 20 24 H Creatinine 0.78 1.12 D 1.20 Est Cr Clr Drug Dosing 52.2 36.4 33.9 Est GFR ( Amer) 79.8 51.5 47.4 Est GFR (Non-Af Amer) 68.8 44.4 40.9 BUN/Creatinine Ratio 20.5 H 17.9 20.0 Glucose 105 H 98 147 H Calcium 9.6 9.5 9.6 Magnesium 1.8 1.7 1.8 03/16/22 03/16/22 06:09 06:09 WBC 4.95 RBC 3.90 L Hgb 12.3 Hct 35.4 MCV 90.8 MCH 31.5 MCHC 34.7 RDW Std Deviation 39.6 RDW Coeff of Jason 11.9 Plt Count 227 MPV 8.9 L Immature Gran % (Auto) 0.4 Neut % (Auto) 47.3 Lymph % (Auto) 38.4 [place] % (Auto) 11.1 Eos % (Auto) 2.4 Baso % (Auto) 0.4 Neut # (Auto) 2.34 Lymph # (Auto) 1.90 [place] # (Auto) 0.55 Eos # (Auto) 0.12 Baso # (Auto) 0.02 Immature Gran # (Auto) 0.02 Sodium 124 L Potassium 3.8 Chloride 92 L Carbon Dioxide 27 Anion Gap 5 BUN 24 H Creatinine 0.76 D Est Cr Clr Drug Dosing 53.6 Est GFR ( Amer) 82.3 Est GFR (Non-Af Amer) 71.0 BUN/Creatinine Ratio 31.6 H Glucose 96 Calcium 9.2 Magnesium 1.9 PG Care Time/CCT Total # of Minutes Spent Total Time Spent with Patient: Total time spent is greater than 50% in coordination of care (as documented) at patient's floor/unit and/or counseling patient: Coding Level of Care Code 40820 Inpt Consult Level 4 Diagnoses Chronic hyponatremia E87.1 Hypertension I10 Compression fracture
[2022-03-16] MEDS ORDERED: SODIUM CHLORIDE 3 % 100 ML IV ONE ×2 (11:00→15:45)
[2022-03-16 14:40] LABS: Albumin Level 3.7 gm/dl (3.4-5.0); BUN Creatinine Ratio 19.3 (10-20); Calcium 9.6 mg/dl (8.5-10.1); Creatinine Clr Calc Pharmacy 30.2 ml/min; Est GFR (African American) 41.1 ml/min; Est GFR (Non-African American) 35.5 ml/min; Phosphorus 3.2 mg/dl (2.5-4.9); Potassium 4.1 mmol/L (3.5-5.1)
[2022-03-16] MEDS ORDERED: POLYETHYLENE (MIRALAX) 17 GM PACK PO PRN (18:08)
--- NOTE | 2022-03-16 18:16 | Hospitalist Progress Note ---
Date of Service March 16, 2022 Assessment & Plan (1) Acute hyponatremia: Plan: Acute on chronic hyponatremia Has laboratory values and urine studies are consistent with SIADH. Baseline sodium around 128-133 Presented with sodium of 120 -Not currently symptomatic and was initially thought to be euvolemic - received 3% saline with initial increase- follow on 3% saline resulted in decrease in sodium level as well as peripheral edema increasing-had improvement following 20mg IV lasix with appropriate rise in her sodium level in the morning -Has been on fluid restriction and salt tablets as well but salt tablets discontinued on 03/15 -Further reduce to 1000 ml fluid restriction -Continue Lasix 20 Mg p.o. once daily - TSH normal - AM random cortisol 12 -Sodium was up to 126 in 03/15 and is back down to 124 on 03/16--> consult nephrology for further management-recommended further 3% saline boluses and free water restriction-most recent sodium up to 127 -Continue serial BMPs, follow urine osmolality in the morning -Pain can also cause worsening of SIADH-pain control for compression fractures as below (2) Compression fracture: Plan: Patient with fall earlier in the month. She had plain films performed at that time With T12 compression fracture with 25% compression and 3 mm of retropulsion, no central canal stenosis Also with indeterminate age compression fractures of T4 and T7 on CT Patient does not want to try opioids Started calcitonin nasal spray on 03/15 Add lidocaine patch again as Voltaren gel not helping DC Voltaren gel -Continue heating pad Continue Tylenol but make scheduled 1000 mg p.o. every 8 hours -We will consult orthopedic spine surgery to see if he be a candidate for kyphoplasty (3) Constipation: Plan: -Patient has been severely constipated for approximately 3 weeks prior to admission -CT abdomen/pelvis and KUB today negative for obstruction - Multiple large soft BM on 03/14 following bisacodyl suppository and more loose stools again on 03/16 -Patient has now been refusing the MiraLAX and docusate/senna-we will discontinue docusate/senna and make MiraLAX as needed With some migrating lower abdominal pains on the afternoon of 03/16-suspect laxative effect and gas-improved on own Continue to monitor and repeat KUB if pains return (4) Paroxysmal atrial fibrillation: Plan: -Continue eliquis, and diltiazem - rate controlled (5) Hypertension: Plan: Continue diltiazem Blood pressures are controlled (6) Hyperlipidemia: Plan: Is intolerant to statins (7) Abnormal urinalysis: Plan: -ED gave patient a dose of ceftriaxone for a dirty UA but the patient has been afebrile, no leukocytosis, and no urinary symptoms - Agree UA on admission heavy with epis- continue to follow- hold abx. Urine culture with gamma strep not Enterococcus-asymptomatic bacteriuria (8) Incidental pulmonary nodule: Plan: noted on imaging of CT of spine - 5 mm groundglass nodule of the right upper lobe with 4 mm solid nodule of the left upper lobe - Solitary nodule size: <6 mm * Low risk patients: no follow-up needed * high risk patients: optional CT at 12 months Low risk Plan Disposition-continued stay on medical/surgical unit. PT evaluation recommends returning home. Would appreciate PT/OT would continue to see patient daily Will admitted May need home health Continued stay until pain and sodium levels are improved. Needs orthopedic spine surgery evaluation Admission and Anticipated Discharge Date Admission Date: March 12, 2022 Subjective Patient reports ongoing significant pain in the left lower back. Also earlier this afternoon had some nausea and some fairly severe right lower quadrant pain which then resolved. She is eating dinner when I saw her. On palpation, she then had some pain in the left lower abdomen. She does report some looser s tools since taking laxatives a couple days ago. She is passing gas. Does have leg swelling and has compression stockings in place Review of Systems Review of Systems: All systems reviewed & are unremarkable except as noted in HPI & below Physical Exam Physical Exam: Gen: AAOx3, NAD HEENT: Anicteric sclerae, EOMI CV: RRR no mgr nl S1S2 Pulm: CTAB no wcr Abd: +BS soft mild tenderness palpation without guarding or rebound no LLQ, ND n o masses or hernias Ext: 2+ pitting edema to the knees bilaterally Skin: No rashes, warm/dry Neuro: Full strength throughout Results & Data Results & Data ([facility]) Vital Signs (Past 12 Hours) Vital Signs Temp Pulse Resp BP Pulse Ox O2 Del Method 03/16/22 15:05 36.6 C 75 16 147/82 H 96 Room Air 03/16/22 08:00 Room Air 03/16/22 07:03 36.5 C 67 16 121/69 99 Room Air Laboratory Results 03/16/22 03/16/22 03/16/22 Range/Units 14:01 06:09 06:09 WBC 4.95 (4.8-10.8) K/ul RBC 3.90 L (3.93-5.22) M/uL Hgb 12.3 (12.0-16.0) g/dl Hct 35.4 (34.1-44.9) % MCV 90.8 (80.0-100.0) fL MCH 31.5 (25.0-34.0) pg MCHC 34.7 (32.0-36.0) g/dL RDW Std Deviation 39.6 (36.4-46.3) fL RDW Coeff of Jason 11.9 (11.5-14.5) % Plt Count 227 (130-400) K/uL MPV 8.9 L (9.4-12.3) fL Immature Gran % (Auto) 0.4 % Neut % (Auto) 47.3 % Lymph % (Auto) 38.4 % [place] % (Auto) 11.1 % Eos % (Auto) 2.4 % Baso % (Auto) 0.4 % Neut # (Auto) 2.34 (1.4-6.5) K/uL Lymph # (Auto) 1.90 (1.2-3.4) K/uL [place] # (Auto) 0.55 (0.24-0.82) K/uL Eos # (Auto) 0.12 (0-0.50) K/uL Baso # (Auto) 0.02 (0-0.2) K/uL Immature Gran # (Auto) 0.02 (0.00-0.02) K/uL Sodium 127 L 124 L (136-145) mmol/L Potassium 4.1 3.8 (3.5-5.1) mmol/L Chloride 92 L 92 L (98-107) mmol/L Carbon Dioxide 29 27 (21-32) mmol/L Anion Gap 6 5 (3-11) BUN 26 H 24 H (6-23) mg/dl Creatinine 1.35 H D 0.76 D (0.6-1.2) mg/dl Est Cr Clr Drug Dosing 30.2 53.6 ml/min Est GFR ( Amer) 41.1 82.3 ml/min Est GFR (Non-Af Amer) 35.5 71.0 ml/min BUN/Creatinine Ratio 19.3 31.6 H (10-20) Glucose 115 H 96 (70-99(Fasting)) mg/dl Calcium 9.6 9.2 (8.5-10.1) mg/dl Phosphorus 3.2 (2.5-4.9) mg/dl Magnesium 1.9 (1.7-2.4) mg/dl Albumin 3.7 (3.4-5.0) gm/dl 03/15/22 Range/Units 18:02 WBC (4.8-10.8) K/ul RBC (3.93-5.22) M/uL Hgb (12.0-16.0) g/dl Hct (34.1-44.9) % MCV (80.0-100.0) fL MCH (25.0-34.0) pg MCHC (32.0-36.0) g/dL RDW Std Deviation (36.4-46.3) fL RDW Coeff of Jason (11.5-14.5) % Plt Count (130-400) K/uL MPV (9.4-12.3) fL Immature Gran % (Auto) % Neut % (Auto) % Lymph % (Auto) % [place] % (Auto) % Eos % (Auto) % Baso % (Auto) % Neut # (Auto) (1.4-6.5) K/uL Lymph # (Auto) (1.2-3.4) K/uL [place] # (Auto) (0.24-0.82) K/uL Eos # (Auto) (0-0.50) K/uL Baso # (Auto) (0-0.2) K/uL Immature Gran # (Auto) (0.00-0.02) K/uL Sodium 126 L (136-145) mmol/L Potassium 4.6 (3.5-5.1) mmol/L Chloride 86 L (98-107) mmol/L Carbon Dioxide 26 (21-32) mmol/L Anion Gap 14 H (3-11) BUN 24 H (6-23) mg/dl Creatinine 1.20 (0.6-1.2) mg/dl Est Cr Clr Drug Dosing 33.9 ml/min Est GFR ( Amer) 47.4 ml/min Est GFR (Non-Af Amer) 40.9 ml/min BUN/Creatinine Ratio 20.0 (10-20) Glucose 147 H (70-99(Fasting)) mg/dl Calcium 9.6 (8.5-10.1) mg/dl Phosphorus (2.5-4.9) mg/dl Magnesium 1.8 (1.7-2.4) mg/dl Albumin (3.4-5.0) gm/dl PG Care Time/CCT Total # of Minutes Spent Total Time Spent with Patient: Total time spent is greater than 50% in coordination of care (as documented) at patient's floor/unit and/or counseling patient: Coding Level of Care Code 31314 Subseq Hosp Care Lvl 2 Diagnoses Acute hyponatremia E87.1 Compression fracture Constipation K59.00 Constipation type: unspecified constipation type Paroxysmal atrial fibrillation I48.0 Hypertension I10 Hyperlipidemia E78.5 Abnormal urinalysis R82.90 Incidental pulmonary nodule R91.1 (1) Constipation Constipation type: unspecified constipation type Qualified Code(s): K59.00 - Constipation, unspecified
[2022-03-16] MEDS ORDERED: ACETAMINOPHEN 500 MG TAB PO SCH (18:30)
[2022-03-16] MEDS: ACETAMINOPHEN 500 MG TAB PO SCH (22:10)
[2022-03-16] MEDS ORDERED: SODIUM CHLORIDE 3 % 150 ML IV ONE (22:30)
[2022-03-17] MEDS: ACETAMINOPHEN 500 MG TAB PO SCH ×3 (06:17→15:03)
[2022-03-17 07:57] LABS: Albumin Level 3.2 gm/dl (3.4-5.0); Calcium 8.7 mg/dl (8.5-10.1); Phosphorus 2.8 mg/dl (2.5-4.9); Potassium 3.9 mmol/L (3.5-5.1)
[2022-03-17] MEDS ORDERED: SODIUM CHLORIDE 3 % 100 ML IV ONE ×2 (08:23→15:38)
[2022-03-17] MEDS ORDERED: STAT IV STA ×2 (08:23→15:38)
[2022-03-17] MEDS: LIDOCAINE 5% 1 PATCH TD SCH (08:36)
[2022-03-17] MEDS: APIXABAN 5 MG TABLET PO SCH ×2 (08:38→20:51)
[2022-03-17] MEDS: CALCIUM 600MG + VIT D 400 IU TAB PO SCH (08:38)
[2022-03-17] MEDS: ASCORBIC ACID 500 MG TAB PO SCH (08:38)
[2022-03-17] MEDS: dilTIAZem HCL 120 MG CAPCR PO SCH (08:38)
[2022-03-17] MEDS: CALCITONIN SALMON NA 200 IU/AC 3.7 ML BTL SCH (08:38)
--- NOTE | 2022-03-17 09:51 | Nephrology Progress Note ---
Date of Service March 17, 2022 Assessment & Plan (1) Chronic hyponatremia: Plan: Clinically consistent with SIADH complicated by decreased PO intake and intravascular volume depletion. Uosm increased this AM at 650 (previously 400). I suspect this is related to intravascular depletion from diuretics. Trisha appears volume contracted at this time. Additional hypertonic fluids are being provided and as sodium improves I will liberalize free water restriction. Document strict I/O. Daily fluid restriction of 1.2 L. LE compression stocking and feet elevated while in bed. Hold furosemide. Additional 100 ml of 3% saline has been ordered this AM. I have also ordered an additional 20 mEq of KCl PO. Serum creatinine pending. Repeat metabolic profile this afternoon requested. (2) Hypertension: Plan: BP acceptable. Check orthostatic vitals. Furosemide held. Remains on diltiazem 120 mg daily. (3) Compression fracture: Plan: Pain controlled. Admission and Anticipated Discharge Date Admission Date: March 12, 2022 Subjective No acute events overnight. Remains some discomfort in her left hand possibly associated with IV. Hands are sore from repeated blood draws. Trisha feels dehydrated. She reports some weakness. Her mouth is dry. Appetite is fair. She finds some of the food particularly chicken to be very dry and hard to eat. Review of Systems Review of Systems: All systems reviewed & are unremarkable except as noted in HPI & below Physical Exam Constitutional: well developed and + frail appearing; no acute distress Eyes: + anicteric sclerae; no corneal abnormality ENMT: Mouth: + dry oral mucous membranes; no oral mucosal abnormality Neck: normal visual inspection and trachea midline Respiratory: normal respiratory effort Auscultation: lungs clear to auscultation bilaterally Cardiovascular: Rate/Rhythm: regular rate Heart Sounds: normal S1 and normal S2 Extremities: + pedal edema Musculoskeletal: Extremities: no cyanosis and no clubbing Skin: + turgor decreased; no lesions Neurologic: Motor/Sensory: no tremor and no asterixis Psychiatric: Orientation: alert and oriented x 3 Results & Data ([facility]) Vital Signs (Past 12 Hours) Vital Signs Temp Pulse Resp BP Pulse Ox O2 Del Method 03/17/22 07:53 36.9 C 75 16 128/69 95 Room Air 03/16/22 22:25 36.5 C 78 18 133/62 93 Room Air Laboratory Results Laboratory Results - last 24 hr 0903/16/22 03/17/22 14:01 20:36 06:49 Sodium 127 L 125 L 128 L Potassium 4.1 3.9 Chloride 92 L 97 L Carbon Dioxide 29 25 Anion Gap 6 6 BUN 26 H 27 H Creatinine 1.35 H D Pending Est Cr Clr Drug Dosing 30.2 Pending Est GFR ( Amer) 41.1 Pending Est GFR (Non-Af Amer) 35.5 Pending BUN/Creatinine Ratio 19.3 TNP Glucose 115 H 133 H Calcium 9.6 8.7 Phosphorus 3.2 2.8 Albumin 3.7 3.2 L Urine Osmolality 03/17/22 07:47 Sodium Potassium Chloride Carbon Dioxide Anion Gap BUN Creatinine Est Cr Clr Drug Dosing Est GFR ( Amer) Est GFR (Non-Af Amer) BUN/Creatinine Ratio Glucose Calcium Phosphorus Albumin Urine Osmolality 650 PG Care Time/CCT Total # of Minutes Spent Total Time Spent with Patient: Total time spent is greater than 50% in coordination of care (as documented) at patient's floor/unit and/or counseling patient: Coding Level of Care Code 36491 Subseq Hosp Care Lvl 3 Diagnoses Chronic hyponatremia E87.1 Hypertension I10 Compression fracture
[2022-03-17] MEDS ORDERED: POTASSIUM CHLORIDE CRTAB 20 MEQ TABCR PO STA (09:55)
--- NOTE | 2022-03-17 10:15 | Consultation ---
Date of Consultation March 17, 2022 Assessment & Plan (1) Compression fracture: Patient has an acute to subacute T11 compression fracture status post fall 3 weeks ago. She really has very little pain in this region. Most of her symptoms are along the left sciatic notch. In regards to her compression fr acture, I have ordered a TLSO brace to be worn with walking and standing. May remove to sleep and when seated. Ambulate ad holden. No lifting greater than 5 pounds. In regards to her sciatic notch pain and treatment is conservative for this. Continue with Lidoderm patch. Continue with pain control. She states she has an appointment in our office in about 2 weeks. I have urged her to keep this and we will follow-up on both her compression fracture and SI pain. History of Present Illness Reason for Consultation: T11 compression fracture Attending Physician: Pb Echeverria Hamilton History of Present Illness Is a pleasant 86-year-old female who sustained a fall on February 25 while at a friend's house. She landed on her side. She had help getting up. Typically she Ambulates independently. She lives with her . Pain only started several days later. Current pain is along her left sacroiliac notch. She does not have pain over the thoracolumbar region midline. Pain across the left SI region is exacerbated with rolling over in bed, changing positions, weightbearing. She went to the ER on March 11 at the suggestion of her family physician due to severe constipation. She was treated and released. She went back to the ER the following day March 12 where she was subsequently admitted and has been here since. She also has been diagnosed with hyponatremia and severe constipation. Allergies Allergy/AdvReac Type Severity Reaction Status Date / Time iodine Allergy UNK Verified 03/11/22 16:05 Penicillins AdvReac Unknown Verified 03/11/22 16:05 Gmqymkr-FNC-NkR Reductase AdvReac Muscle Pain Verified 03/11/22 16:05 Inhibitor [Lagicel-Wue-Hwt Reductase Inhibitor] Home Medications Medication Instructions Recorded Confirmed Type calcium citrate 315 mg 1 tab PO DAILY 04/10/20 03/15/22 History calcium-vitamin D3 6.25 mcg (250 unit) tablet (Citracal + Vitamin D Maximum) ascorbic acid (vitamin C) 1,000 mg 1 g PO QAM 09/26/21 03/15/22 History tablet (Vitamin C With Gill Hips) furosemide 20 mg tablet 10 mg PO DAILY #90 tabs 10/23/21 03/15/22 Rx apixaban 5 mg tablet (Eliquis) 5 mg PO BID #180 tabs 02/03/22 03/15/22 Rx diltiazem HCl 120 mg 120 mg PO DAILY 02/05/22 03/15/22 History capsule,extended release 24 hr (Cartia XT) spironolactone 25 mg tablet 25 mg PO DAILY #90 tabs 02/16/22 03/11/22 Rx ergocalciferol (vitamin D2) 1,250 50,000 unit PO .COMPLEX 03/11/22 03/15/22 History mcg (50,000 unit) capsule sennosides 8.6 mg-docusate sodium 1 tab-cap PO DAILY PRN 03/11/22 Rx 50 mg tablet constipation #60 tabs Patient History Medical History Arthritis Compression fracture Cystocele Encounter for pre-operative examination H/O uterine leiomyoma Hypertension Monoclonal gammopathy of unknown significance (MGUS) MVP (mitral valve prolapse) Post-menopausal bleeding Presence of pessary Second degree uterine prolapse Skin rash Urinary incontinence Surgical History H/O cervical polypectomy 2008 H/O inguinal hernia repair Left - 1998 History of elbow surgery "Broken elbow repair" - 11/1990 w/ Dr. Starr History of tonsillectomy Family History Mother Myocardial infarction Father Myocardial infarction Sister Breast cancer Other Asthma No family history of adverse response to anesthesia No family history of bleeding disorder Denies family history of Ovarian cancer Colorectal cancer Social History Smoking Status: Never smoker Second Hand Exposure: No; Do You Dip or Chew Tobacco: No; Hx Alcohol Use: No Hx Substance Use: No Preferred Language: Gambian Communication Ability: Effective Bingo Worker Required: No Beliefs That Will Affect Care: None marital status: Current Living Situation: Spouse How many Children do You have: 2 Other Information That Helps Us Care for You: No Feels Safe at Home: Yes Safety Concerns: Feels Safe At This Time Assistive Devices: Cane Review of Systems Review of Systems: All systems reviewed & are unremarkable except as noted in HPI & below Physical Exam Physical Exam: She sitting in chair alert and oriented x3 She is in no acute distress She is cooperative with exam Strength is 5/5 bilateral lower extremity She is nontender to palpation and percussion throughout the midline thoracolumba r spine She has a Lidoderm patch over the left sciatic notch region She is exquisitely tender to palpation over the left sciatic notch, nontender on the right. E Constitutional: average body habitus Eyes: normal visual pratt by confrontation ENMT: external ear and nose normal, oropharynx normal Neck: normal visual inspection Respiratory: normal respiratory effort Cardiovascular: Extremities: normal capillary refill Gastrointestinal (Abdomen): Inspection/Auscultation: abdomen normal to inspection Musculoskeletal: Spine: + sciatic notch tenderness Extremities: extremities normal to inspection and strength 5/5 throughout Skin: no rashes, warm and dry Neurologic: normal touch/pain/proprioception and moves all extremities Psychiatric: A+Ox3, euthymic affect Eye Contact: good eye contact Speech: normal rate/rhythm/volume of speech Results & Data ([facility]) Vital Signs (Past 12 Hours) Vital Signs Temp Pulse Resp BP Pulse Ox O2 Del Method 03/17/22 07:53 36.9 C 75 16 128/69 95 Room Air 03/16/22 22:25 36.5 C 78 18 133/62 93 Room Air Diagnostic Findings [place], [place] [phone] CT Scan Report Patient:MEGHA SANTA Admit Date:03/12/22 MR#:[id number] Address1:[address] [place] [address] Acct ID:[id number] Address2: Date:[address] [facility] Zip:[place] [address] Age:86 Location:3W Sex:F Room/Bed:[facility] Att Phy:Dorie Garcia MD Diagnosis:HYPONATREMIA Vanita Phy:Ayaan Arriola MD Service Date:03/13/22 Fam Phy: Interpreting Phy:Marcello GonzalezAdmit Phy:Pb Villasenor M.D. Ordering Phy:Davi Gross cc: ~ CT LUMBAR SPINE WO CON CT THORACIC SPINE WO CON HISTORY: 86 years-old Female fall few weeks ago, pain into lumbar spine as well, acute low back pain status post fall. COMPARISON: CT thoracic spine of same day, CT abdomen and pelvis 03/11/2022, lumbar spine radiographs 03/03/2022. TECHNIQUE: Multiple axial CT images of the thoracic and lumbar spine were obtai brandi without the use of IV contrast. A dose lowering technique was used consistent with the principals of HOLLY. FINDINGS: CT THORACIC: Cardiomegaly. Dilation of the pulmonary arteries suggestive of pulmonary arterial hypertension. Extensive coronary artery calcifications. 4 mm solid nodule of the left upper lobe. Mild linear scarring versus atelectasis of the basal right lower lobe. 5 mm groundglass nodule of the right upper lobe, image 123. Central airways are patent. Moderate multilevel intervertebral disc space narrowing and spondylitic spurring with associated facet arthrosis. Age-indeterminate mild superior endplate compression deformity of the T4 vertebral body without retropulsion or acute fracture line. Additional mild superior endplate compression of the T7 vertebral body. T12 fracture as described below. CT LUMBAR: Trace pleural effusions. Subsegmental left basilar consolidation. Mild wall thickening of the distal esophagus. The study is degraded by respiratory motion artifact. Atherosclerosis of the aorta without aneurysm. Grade 1 anterolisthesis of 6 mm L4 on L5 is likely on a degenerative basis. 25% subacute superior endplate compression deformity of the T12 vertebral body is unchanged from the 03/03/2022 radiographs. 3 mm retropulsion. Paravertebral edema is noted without significant central canal or neural foraminal narrowing. No acute fracture or subluxation of the lumbar spine. Severe L1-L2 with moderate L2-L3 intervertebral disc space narrowing. 15 degrees levoscoliosis measured from L2-L4. Severe lower lumbar facet arthrosis. Moderate degeneration of the SI joints. There is at least moderate central canal stenosis at L3-L4 secondary to posterior annular disc bulge with ligamentum flavum thickening and facet arthrosis. Mild to moderate bilateral neural foraminal narrowing. Moderate central canal stenosis at L4-L5. IMPRESSION: 1. Subacute 25% superior endplate compression deformity of T12 with 3 mm retropulsion is unchanged from the 03/03/2022 lumbar spine radiographs. No significant associated central canal stenosis. 2. Mild superior endplate compression deformities of the T4 and T7 vertebral bodies are technically age-indeterminate however are favored to be chronic. 3. No acute fracture or subluxation of the lumbar spine. 4. Cardiomegaly with trace pleural effusions and right basilar atelectasis. 5. 5 mm groundglass nodule of the right upper lobe with 4 mm solid nodule of the left upper lobe. Follow-up guidelines provided below. Please refer to below summary of Fleischner criteria recommendations for follow- up of incidental CT nodules (Rm Mcdowell, Guidelines for management of small pulmonary nodules detected on CT scans: A statement from the Fleischner Society, Radiology 237: [phone].) SOLID NODULES Solitary nodule size: <6 mm * Low risk patients: no follow-up needed * high risk patients: optional CT at 12 months Note: newly detected indeterminate nodule in persons 35 years of age or older. * Low risk patients: minimal or absent history of smoking and/or other known risk factors * high risk patients: history of smoking or of other known risk factors (e.g. first degree relative with lung cancer, or exposure to asbestos, radon, uranium) * if a nodule up to 8 mm is partly solid or is ground glass further follow-up is required after 24 months to exclude possible slow growing adenocarcinoma (CAMDEN) SUBSOLID NODULES Solitary pure ground-glass nodule * nodule size <6 mm - no CT follow-up required * nodule size >=6 mm - follow-up CT at 6-12 months, then every 2 years until 5 years ACT 112: Negative or not required by law. The above report was generated using voice recognition software. It may contain grammatical, syntax or spelling errors. Dictated: 03/13/2022 12:50 PM Transcribed: 03/13/2022 1:47 PM Jillian [id number] [facility] Electronically signed by: Marcello Gonzalez M.D. 03/13/2022 2:39 PM Dictated:03/13/22 1250 Transcribed: 03/13/22 4637 [place], [place] [phone] CT Scan Report Patient:MEGHA SANAT Admit Date:03/12/22 MR#:[id number] Address1:[address] [place] [address] Acct ID:[id number] Address2: Date:[address] [facility] Zip:[place] [address] Age:86 Location:3W Sex:F Room/Bed:[facility] Att Phy:Dorie Garcia MD Diagnosis:HYPONATREMIA Vanita Phy:Ayaan Arriola MD Service Date:03/13/22 Fam Phy: Interpreting Phy:Marcello GonzalezAdmit Phy:Pb Villasenor M.D. Ordering Phy:Davi Gross cc: ~ CT LUMBAR SPINE WO CON CT THORACIC SPINE WO CON HISTORY: 86 years-old Female fall few weeks ago, pain into lumbar spine as well, acute low back pain status post fall. COMPARISON: CT thoracic spine of same day, CT abdomen and pelvis 03/11/2022, lumbar spine radiographs 03/03/2022. TECHNIQUE: Multiple axial CT images of the thoracic and lumbar spine were obtained without the use of IV contrast. A dose lowering technique was used consistent with the principals of HOLLY. FINDINGS: CT THORACIC: Cardiomegaly. Dilation of the pulmonary arteries suggestive of pulmonary arterial hypertension. Extensive coronary artery calcifications. 4 mm solid nodule of the left upper lobe. Mild linear scarring versus atelectasis of the basal right lower lobe. 5 mm groundglass nodule of the right upper lobe, image 123. Central airways are patent. Moderate multilevel intervertebral disc space narrowing and spondylitic spurring with associated facet arthrosis. Age-indeterminate mild superior endplate compression deformity of the T4 vertebral body without retropulsion or acute fracture line. Additional mild superior endplate compression of the T7 vertebral body. T12 fracture as described below. CT LUMBAR: Trace pleural effusions. Subsegmental left basilar consolidation. Mild wall thickening of the distal esophagus. The study is degraded by respiratory motion artifact. Atherosclerosis of the aorta without aneurysm. Grade 1 anterolisthesis of 6 mm L4 on L5 is likely on a degenerative basis. 25% subacute superior endplate compression deformity of the T12 vertebral body is unchanged from the 03/03/2022 radiographs. 3 mm retropulsion. Paravertebral edema is noted without significant central canal or neural foraminal narrowing. No acute fracture or subluxation of the lumbar spine. Severe L1-L2 with moderate L2-L3 intervertebral disc space narrowing. 15 degrees levoscoliosis measured from L2-L4. Severe lower lumbar facet arthrosis. Moderate degeneration of the SI joints. There is at least moderate central canal stenosis at L3-L4 secondary to posterior annular disc bulge with ligamentum flavum thickening and facet arthrosis. Mild to moderate bilateral neural foraminal narrowing. Moderate central canal stenosis at L4-L5. IMPRESSION: 1. Subacute 25% superior endplate compression deformity of T12 with 3 mm retropulsion is unchanged from the 03/03/2022 lumbar spine radiographs. No significant associated central canal stenosis. 2. Mild superior endplate compression deformities of the T4 and T7 vertebral bodies are technically age-indeterminate however are favored to be chronic. 3. No acute fracture or subluxation of the lumbar spine. 4. Cardiomegaly with trace pleural effusions and right basilar atelectasis. 5. 5 mm groundglass nodule of the right upper lobe with 4 mm solid nodule of the left upper lobe. Follow-up guidelines provided below. Please refer to below summary of Fleischner criteria recommendations for follow- up of incidental CT nodules (Rm Mcdowell, Guidelines for management of small pulmonary nodules detected on CT scans: A statement from the Fleischner Society, Radiology 237: [phone].) SOLID NODULES Solitary nodule size: <6 mm * Low risk patients: no follow-up needed * high risk patients: optional CT at 12 months Note: newly detected indeterminate nodule in persons 35 years of age or older. * Low risk patients: minimal or absent history of smoking and/or other known risk factors * high risk patients: history of smoking or of other known risk factors (e.g. first degree relative with lung cancer, or exposure to asbestos, radon, uranium) * if a nodule up to 8 mm is partly solid or is ground glass further follow-up is required after 24 months to exclude possible slow growing adenocarcinoma ([place]) SUBSOLID NODULES Solitary pure ground-glass nodule * nodule size <6 mm - no CT follow-up required * nodule size >=6 mm - follow-up CT at 6-12 months, then every 2 years until 5 years ACT 112: Negative or not required by law. The above report was generated using voice recognition software. It may contain grammatical, syntax or spelling errors. Dictated: 03/13/2022 12:50 PM Transcribed: 03/13/2022 1:47 PM Jillian [id number] [facility] Electronically signed by: Marcello Gonzalez M.D. 03/13/2022 2:39 PM Dictated:03/13/22 1250 Transcribed: 03/13/22 1347
[2022-03-17 10:31] LABS: BUN Creatinine Ratio 37.5 (10-20); Creatinine Clr Calc Pharmacy 56.8 ml/min; Est GFR (African American) 87.9 ml/min; Est GFR (Non-African American) 75.8 ml/min
[2022-03-17 14:42] LABS: BUN Creatinine Ratio 35.6 (10-20); Calcium 9.6 mg/dl (8.5-10.1); Est GFR (African American) 86.4 ml/min; Est GFR (Non-African American) 74.6 ml/min; Potassium 4.5 mmol/L (3.5-5.1)
[2022-03-17] MEDS: ACETAMINOPHEN 325 MG TAB PO SCH (20:51)
[2022-03-17] MEDS ORDERED: ACETAMINOPHEN 325 MG TAB PO SCH (21:00)
[2022-03-17] MEDS ORDERED: ACETAMINOPHEN 500 MG TAB PO SCH (21:00)
--- NOTE | 2022-03-17 21:32 | Hospitalist Progress Note ---
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 Baseline sodium around 128-133 Presented with sodium of 120 -Not currently symptomatic and was initially thought to be euvolemic - received 3% saline with initial increase- follow on 3% saline resulted in decrease in sodium level as well as peripheral edema increasing-had improvement following 20mg IV lasix with appropriate rise in her sodium level in the morning -Has been on fluid restriction and salt tablets as well but salt tablets discontinued on 03/15 -Further reduce to 1000 ml fluid restriction -Continue Lasix 20 Mg p.o. once daily - TSH normal - AM random cortisol 12 -Sodium was up to 126 in 03/15 and is back down to 124 on 03/16--> consult nephrology for further management-recommended further 3% saline boluses and free water restriction-most recent sodium up to 131 -Continue serial BMPs, follow urine osmolality in the morning -Pain can also cause worsening of SIADH-pain control for compression fractures as below (2) Compression fracture: Plan: Patient with fall earlier in the month. She had plain films performed at that time With T12 compression fracture with 25% compression and 3 mm of retropulsion, no central canal stenosis Also with indeterminate age compression fractures of T4 and T7 on CT Patient does not want to try opioids Started calcitonin nasal spray on 03/15 Add lidocaine patch again as Voltaren gel not helping DC Voltaren gel -Continue heating pad Continue Tylenol but make scheduled 1000 mg p.o. every 8 hours -We will consult orthopedic spine surgery to see if he be a candidate for kyphoplasty appreciate inpiut. (3) Constipation: Plan: -Patient has been severely constipated for approximately 3 weeks prior to admission -CT abdomen/pelvis and KUB today negative for obstruction - Multiple large soft BM on 03/14 following bisacodyl suppository and more loose stools again on 03/16 -Patient has now been refusing the MiraLAX and docusate/senna-we will discontinue docusate/senna and make MiraLAX as needed With some migrating lower abdominal pains on the afternoon of 03/16-suspect laxative effect and gas-improved on own Continue to monitor and repeat KUB if pains return (4) Paroxysmal atrial fibrillation: Plan: -Continue eliquis, and diltiazem - rate controlled (5) Hypertension: Plan: Continue diltiazem Blood pressures are controlled (6) Hyperlipidemia: Plan: Is intolerant to statins (7) Abnormal urinalysis: Plan: -ED gave patient a dose of ceftriaxone for a dirty UA but the patient has been afebrile, no leukocytosis, and no urinary symptoms - Agree UA on admission heavy with epis- continue to follow- hold abx. Urine culture with gamma strep not Enterococcus-asymptomatic bacteriuria (8) Incidental pulmonary nodule: Plan: noted on imaging of CT of spine - 5 mm groundglass nodule of the right upper lobe with 4 mm solid nodule of the left upper lobe - Solitary nodule size: <6 mm * Low risk patients: no follow-up needed * high risk patients: optional CT at 12 months Low risk Plan Disposition-continued stay on medical/surgical unit. PT evaluation recommends returning home. Would appreciate PT/OT would continue to see patient daily Will admitted May need home health Continued stay until pain and sodium levels are improved. Needs orthopedic spine surgery evaluation Admission and Anticipated Discharge Date Admission Date: March 12, 2022 Subjective 86 yo female reports no new symptoms. She states she cannot wear her brace as she eats. Review of Systems Review of Systems: All systems reviewed & are unremarkable except as noted in HPI & below Physical Exam Physical Exam: Gen: AAOx3, NAD HEENT: Anicteric sclerae, EOMI CV: RRR no mgr nl S1S2 Pulm: CTAB no wcr Abd: +BS soft mild tenderness palpation without guarding or rebound no LLQ, ND no masses or hernias Ext: 2+ pitting edema to the knees bilaterally Skin: No rashes, warm/dry Neuro: Full strength throughout Results & Data Results & Data ([facility]) Vital Signs (Past 12 Hours) Vital Signs Temp Pulse Resp BP Pulse Ox O2 Del Method 03/17/22 15:24 36.4 C L 70 16 119/70 98 Room Air 03/17/22 10:41 76 153/82 H 03/17/22 10:40 76 158/86 H 03/17/22 10:37 36.5 C 77 16 148/80 H 98 Room Air PG Care Time/CCT Total # of Minutes Spent Total Time Spent with Patient: Total time spent is greater than 50% in coordination of care (as documented) at patient's floor/unit and/or counseling patient: Coding Level of Care Code 13971 Subseq Hosp Care Lvl 2 Diagnoses Acute hyponatremia E87.1 Compression fracture Constipation K59.00 Constipation type: unspecified constipation type Paroxysmal atrial fibrillation I48.0 Hypertension I10 Hyperlipidemia E78.5 Abnormal urinalysis R82.90 Incidental pulmonary nodule R91.1 Time Spent (min) 35 (1) Constipation Constipation type: unspecified constipation type Qualified Code(s): K59.00 - Constipation, unspecified
[2022-03-18 05:12] LABS: Hematocrit (blood only) 34.9 % (34.1-44.9); Hemoglobin 12.2 g/dl (12.0-16.0); Mean Corpuscular Hemoglobin 32.4 pg (25.0-34.0); Mean Corpuscular Volume 92.8 fL (80.0-100.0); Mean Platelet Volume 8.9 fL (9.4-12.3); Platelet Count 252 K/uL (130-400); RDW Coefficient of Variation 12.3 % (11.5-14.5); RDW Standard Deviation 41.7 fL (36.4-46.3); Red Blood Count 3.76 M/uL (3.93-5.22); White Blood Count 6.71 K/ul (4.8-10.8)
[2022-03-18 05:56] LABS: Albumin Level 3.4 gm/dl (3.4-5.0); BUN Creatinine Ratio 38.5 (10-20); Creatinine Clr Calc Pharmacy 62.9 ml/min; Est GFR (African American) 93.2 ml/min; Est GFR (Non-African American) 80.4 ml/min; Phosphorus 2.7 mg/dl (2.5-4.9); Potassium 4.4 mmol/L (3.5-5.1)
[2022-03-18] MEDS: CALCIUM 600MG + VIT D 400 IU TAB PO SCH (08:00)
[2022-03-18] MEDS: dilTIAZem HCL 120 MG CAPCR PO SCH (08:00)
[2022-03-18] MEDS: APIXABAN 5 MG TABLET PO SCH ×2 (08:00→20:24)
[2022-03-18] MEDS: CALCITONIN SALMON NA 200 IU/AC 3.7 ML BTL SCH (08:00)
[2022-03-18] MEDS: ASCORBIC ACID 500 MG TAB PO SCH (08:00)
[2022-03-18] MEDS: ACETAMINOPHEN 325 MG TAB PO SCH ×3 (08:00→20:25)
[2022-03-18] MEDS: LIDOCAINE 5% 1 PATCH TD SCH (08:00)
--- NOTE | 2022-03-18 10:36 | Nephrology Progress Note ---
Date of Service March 18, 2022 Assessment & Plan (1) Chronic hyponatremia: Plan: Clinically consistent with SIADH complicated by decreased PO intake and intravascular volume depletion. Uosm ~400 on admission was 650 yesterday and 550 this AM. I suspect a component of intravascular depletion with diuretic use was contributing to increased Uosm. Trisha certainly has SIADH. Diuretics have been held and fluid restriction liberalized. We will continue fluid restriction and PO NaCl today. Document strict I/O. Daily fluid restriction of 1.5 L. LE compression stocking and feet elevated while in bed. Hold furosemide. NaCl 1 gram twice daily. Repeat metabolic profile this afternoon. (2) Hypertension: Plan: BP acceptable. Check orthostatic vitals. Furosemide held. Remains on diltiazem 120 mg daily. (3) Compression fracture: Plan: Continues to report appropriate pain control. Admission and Anticipated Discharge Date Admission Date: March 12, 2022 Subjective No acute events overnight. Trisha feels well this AM. Appetite good. LE edema stable. Reports some weakness but overall improvement. Review of Systems Review of Systems: All systems reviewed & are unremarkable except as noted in HPI & below Physical Exam Constitutional: well developed and + frail appearing; no acute distress Eyes: + anicteric sclerae; no corneal abnormality ENMT: Mouth: no oral mucosal abnormality and oral mucous membranes not dry Neck: normal visual inspection and trachea midline Respiratory: normal respiratory effort Auscultation: lungs clear to auscultation bilaterally Cardiovascular: Rate/Rhythm: regular rate and + bradycardic Heart Sounds: normal S1 and normal S2 Extremities: + edema Musculoskeletal: Extremities: no cyanosis and no clubbing Skin: + turgor decreased; no lesions Neurologic: Motor/Sensory: no tremor and no asterixis Psychiatric: Orientation: alert and oriented x 3 Results & Data ([facility]) Vital Signs (Past 12 Hours) Vital Signs Temp Pulse Resp BP Pulse Ox O2 Del Method 03/18/22 07:57 Room Air 03/18/22 07:32 36.5 C 78 18 136/68 98 Room Air 03/17/22 23:05 36.6 C 16 144/75 H 96 Room Air Laboratory Results Laboratory Results - last 24 hr 03/17/22 03/18/22 03/18/22 14:01 04:20 04:42 WBC RBC Hgb Hct MCV MCH MCHC RDW Std Deviation RDW Coeff of Jason Plt Count MPV Sodium 131 L 130 L Potassium 4.5 4.4 Chloride 98 99 Carbon Dioxide 29 27 Anion Gap 4 4 BUN 26 H 25 H Creatinine 0.73 0.65 Est Cr Clr Drug Dosing 56.0 62.9 Est GFR ( Amer) 86.4 93.2 Est GFR (Non-Af Amer) 74.6 80.4 BUN/Creatinine Ratio 35.6 H 38.5 H Glucose 105 H 89 Calcium 9.6 9.0 Phosphorus 2.7 Albumin 3.4 Urine Osmolality 529 03/18/22 04:42 WBC 6.71 RBC 3.76 L Hgb 12.2 Hct 34.9 MCV 92.8 MCH 32.4 MCHC 35.0 RDW Std Deviation 41.7 RDW Coeff of Jason 12.3 Plt Count 252 MPV 8.9 L Sodium Potassium Chloride Carbon Dioxide Anion Gap BUN Creatinine Est Cr Clr Drug Dosing Est GFR ( Amer) Est GFR (Non-Af Amer) BUN/Creatinine Ratio Glucose Calcium Phosphorus Albumin Urine Osmolality PG Care Time/CCT Total # of Minutes Spent Total Time Spent with Patient: Total time spent is greater than 50% in coordination of care (as documented) at patient's floor/unit and/or counseling patient: Coding Level of Care Code 55173 Subseq Hosp Care Lvl 3 Diagnoses Chronic hyponatremia E87.1 Hypertension I10 Compression fracture
[2022-03-18] MEDS: SODIUM CHLORIDE 1 GM TABLET PO SCH ×2 (11:08→20:24)
[2022-03-18] MEDS ORDERED: ACETAMINOPHEN 325 MG TAB PO SCH (14:00)
[2022-03-18 16:23] LABS: BUN Creatinine Ratio 34.7 (10-20); Creatinine Clr Calc Pharmacy 41.7 ml/min; Est GFR (African American) 60.5 ml/min; Est GFR (Non-African American) 52.2 ml/min; Potassium 4.7 mmol/L (3.5-5.1)
--- NOTE | 2022-03-18 23:49 | Hospitalist Progress Note ---
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 Baseline sodium around 128-133 Presented with sodium of 120 -Not currently symptomatic and was initially thought to be euvolemic - received 3% saline with initial increase- follow on 3% saline resulted in decrease in sodium level as well as peripheral edema increasing-had improvement following 20mg IV lasix with appropriate rise in her sodium level in the morning -Has been on fluid restriction and salt tablets as well but salt tablets discontinued on 03/15 -Further reduce to 1000 ml fluid restriction -Continue Lasix 20 Mg p.o. once daily - TSH normal - AM random cortisol 12 -Sodium was up to 126 in 03/15 and is back down to 124 on 03/16--> consult nephrology for further management-recommended further sodium tablets and free water restriction-most recent sodium up to 132 -Continue serial BMPs -Pain can also cause worsening of SIADH-pain control for compression fractures as below (2) Compression fracture: Plan: Patient with fall earlier in the month. She had plain films performed at that time With T12 compression fracture with 25% compression and 3 mm of retropulsion, no central canal stenosis Also with indeterminate age compression fractures of T4 and T7 on CT Patient does not want to try opioids Started calcitonin nasal spray on 03/15 Add lidocaine patch again as Voltaren gel not helping DC Voltaren gel -Continue heating pad Continue Tylenol but make scheduled 650 mg p.o. every 8 hours -Consulted orthopedic spine surgery to see if he be a candidate for kyphoplasty appreciate inpiut. _though risk of bleed, patient may use intermittent, every other day use PRN of NSAID, or MONSALVE-2 inhibitor for pain relief, if pain is severe. It appears controlled however. (3) Constipation: Plan: -Patient has been severely constipated for approximately 3 weeks prior to admission -CT abdomen/pelvis and KUB today negative for obstruction - Multiple large soft BM on 03/14 following bisacodyl suppository and more loose stools again on 03/16 -Patient has now been refusing the MiraLAX and docusate/senna-we will discontinue docusate/senna and make MiraLAX as needed With some migrating lower abdominal pains on the afternoon of 03/16-suspect laxative effect and gas-improved on own Continue to monitor and repeat KUB if pains return seems controlled on 03/18 (4) Paroxysmal atrial fibrillation: Plan: -Continue eliquis, and diltiazem - rate controlled (5) Hypertension: Plan: Continue diltiazem Blood pressures are controlled (6) Hyperlipidemia: Plan: Is intolerant to statins (7) Abnormal urinalysis: Plan: -ED gave patient a dose of ceftriaxone for a dirty UA but the patient has been afebrile, no leukocytosis, and no urinary symptoms - Agree UA on admission heavy with epis- continue to follow- hold abx. Urine culture with gamma strep not Enterococcus-asymptomatic bacteriuria (8) Incidental pulmonary nodule: Plan: noted on imaging of CT of spine - 5 mm groundglass nodule of the right upper lobe with 4 mm solid nodule of the left upper lobe - Solitary nodule size: <6 mm * Low risk patients: no follow-up needed * high risk patients: optional CT at 12 months Low risk Plan Disposition-continued stay on medical/surgical unit. PT evaluation recommends returning home. Would appreciate PT/OT would continue to see patient daily Will admitted May need home health Continued stay until pain and sodium levels are improved. possble discharge on 03/19 Admission and Anticipated Discharge Date Admission Date: March 12, 2022 Subjective Patient reports no new symptoms. Patient is asking for further pain medicine if her pain gets severe at home. Patient refuses tramadol and opiates due to risk of falling. Review of Systems Review of Systems: All systems reviewed & are unremarkable except as noted in HPI & below Physical Exam Physical Exam: Gen: AAOx3, NAD HEENT: Anicteric sclerae, EOMI CV: RRR no mgr nl S1S2 Pulm: CTAB no wcr Abd: +BS soft mild tenderness palpation without guarding or rebound no LLQ, ND no masses or hernias Ext: 2+ pitting edema to the knees bilaterally Skin: No rashes, warm/dry Neuro: Full strength throughout Results & Data Results & Data ([facility]) Vital Signs (Past 12 Hours) Vital Signs Temp Pulse Resp BP Pulse Ox O2 Del Method 03/18/22 22:33 36.5 C 78 16 106/57 L 93 Room Air 03/18/22 14:54 36.7 C 65 18 136/77 96 Room Air PG Care Time/CCT Total # of Minutes Spent Total Time Spent with Patient: Total time spent is greater than 50% in coordination of care (as documented) at patient's floor/unit and/or counseling patient: Coding Level of Care Code 32895 Subseq Hosp Care Lvl 3 Diagnoses Acute hyponatremia E87.1 Compression fracture Constipation K59.00 Constipation type: unspecified constipation type Paroxysmal atrial fibrillation I48.0 Hypertension I10 Hyperlipidemia E78.5 Abnormal urinalysis R82.90 Incidental pulmonary nodule R91.1 (1) Constipation Constipation type: unspecified constipation type Qualified Code(s): K59.00 - Constipation, unspecified
[2022-03-19 08:13] LABS: Albumin Level 3.4 gm/dl (3.4-5.0); BUN Creatinine Ratio 42.9 (10-20); Calcium 9.2 mg/dl (8.5-10.1); Creatinine Clr Calc Pharmacy 58.4 ml/min; Est GFR (African American) 90.9 ml/min; Est GFR (Non-African American) 78.5 ml/min; Phosphorus 2.9 mg/dl (2.5-4.9); Potassium 4.1 mmol/L (3.5-5.1)
[2022-03-19] MEDS: CALCITONIN SALMON NA 200 IU/AC 3.7 ML BTL SCH (08:40)
[2022-03-19] MEDS: dilTIAZem HCL 120 MG CAPCR PO SCH (08:42)
[2022-03-19] MEDS: ACETAMINOPHEN 325 MG TAB PO SCH (08:42)
[2022-03-19] MEDS: SODIUM CHLORIDE 1 GM TABLET PO SCH (08:43)
[2022-03-19] MEDS: ASCORBIC ACID 500 MG TAB PO SCH (08:43)
[2022-03-19] MEDS: APIXABAN 5 MG TABLET PO SCH (08:43)
[2022-03-19] MEDS: CALCIUM 600MG + VIT D 400 IU TAB PO SCH (08:43)
[2022-03-19] MEDS: LIDOCAINE 5% 1 PATCH TD SCH (08:45)
--- NOTE | 2022-03-19 10:49 | Nephrology Progress Note ---
Date of Service March 19, 2022 Assessment & Plan (1) Chronic hyponatremia: Plan: Clinically consistent with SIADH complicated by decreased PO intake and intravascular volume depletion. Continue oral NaCl 1-2 grams daily. Free water restriction ~1.5 L or 50 fl oz daily. The patient is stable for discharge from a nephrology perspective. She should have close outpatient follow up with Dr. Bearden. Blood work to be repeated on Wednesday as an outpatient. Follow up with Dr. Bearden within 1-2 weeks of discharge. (2) Hypertension: Plan: BP acceptable. Remains on diltiazem 120 mg daily. (3) Compression fracture: Plan: Options for hospital bed at home reviewed with case management. Admission and Anticipated Discharge Date Admission Date: March 12, 2022 Subjective No acute events overnight. Back pain reasonably controlled. Asking about options for hospital bed at home. Hoping to be discharged home today. Plans to try to make a meeting at the [facility]. No edema or fluid retention. Review of Systems Review of Systems: All systems reviewed & are unremarkable except as noted in HPI & below Physical Exam Constitutional: well developed and + frail appearing; no acute distress Eyes: + anicteric sclerae; no corneal abnormality ENMT: Mouth: no oral mucosal abnormality and oral mucous membranes not dry Neck: normal visual inspection and trachea midline Respiratory: normal respiratory effort Auscultation: lungs clear to auscultation bilaterally Cardiovascular: Rate/Rhythm: regular rate and + bradycardic Heart Sounds: normal S1 and normal S2 Extremities: + edema Musculoskeletal: Extremities: no cyanosis and no clubbing Skin: + turgor decreased; no lesions Neurologic: Motor/Sensory: no tremor and no asterixis Psychiatric: Orientation: alert and oriented x 3 Results & Data ([facility]) Vital Signs (Past 12 Hours) Vital Signs Temp Pulse Resp BP Pulse Ox O2 Del Method 03/19/22 07:56 36.5 C 64 18 145/83 H 99 Room Air Laboratory Results Laboratory Results - last 24 hr 03/18/22 03/19/22 15:20 07:19 Sodium 132 L 133 L Potassium 4.7 4.1 Chloride 101 100 Carbon Dioxide 26 28 Anion Gap 5 5 BUN 34 H 30 H Creatinine 0.98 D 0.70 Est Cr Clr Drug Dosing 41.7 58.4 Est GFR ( Amer) 60.5 90.9 Est GFR (Non-Af Amer) 52.2 78.5 BUN/Creatinine Ratio 34.7 H 42.9 H Glucose 108 H 90 Calcium 9.0 9.2 Phosphorus 2.9 Albumin 3.4 PG Care Time/CCT Total # of Minutes Spent Total Time Spent with Patient: Total time spent is greater than 50% in coordination of care (as documented) at patient's floor/unit and/or counseling patient: Coding Level of Care Code 02535 Subseq Hosp Care Lvl 3 Diagnoses Chronic hyponatremia E87.1 Hypertension I10 Compression fracture
--- NOTE | 2022-03-19 12:23 | Discharge Summary ---
Date of Service March 19, 2022 Admission HPI Per Admitting Provider Trisha is an 86 y/o F with a PMH of chronic hyponatremia, HTN, hyperlipidemia, impaired glucose metabolism, paroxysmal Afib (on Eliquis), DVT, IgG gammopathy, osteoporosis and osteoarthritis who presented to the [facility] ED on 03/12/22 at the recommendation of her PCP for hyponatremia. Per chart review, the patient had fall on 02/25/22 resulting in a thoracic vertebra compression fracture. She came to the [facility] ED yesterday with complaints of constipation. CT of the abdomen and pelvis was negative for acute findings including obstruction and showed diverticulosis without diverticulitis. During their workup she was found to be hyponatremic at 122 (baseline is 130). For her constipation they gave her lactulose and a soap suds enema without relief, she declined manual disimpaction. The ED staff recommended she be admitted for her acute on chronic hyponatremia but she declined saying that she felt well. She elected to go home with a prescription of Sennosides-docusate sodium. In the ED today the patient was again noted to be hyponatremic at 121, renal function and other electrolytes are stable, Serum osmolality is 265 with urine osmolality of 380, UA appears infected as well, chest xray was negative for acute findings and KUG shows constipation without obstruction. In the ED the patient was given 2g of ceftriaxone for her UTI. At the time of the exam the patient was lying comfortably in bed in no acute distress with her daughter sitting bedside. They state that the patient has not had a bowel movement in 3 weeks until early this am when she had a small, liquid BM. She will have occasional sharp lower abdominal pain and denies recent nausea and vomiting. She has been trying to drink alot of water recently as they thought it would help her constipation but is unable to quantify how much she h as been drinking. She states that she is still having pain in her thoracic spine as well. When asked about her current diuretic regimen she and her daughter state that she was switched off of her thiazide diuretic and has been taking her lasix 20 mg PO daily as prescribed. She has noticed some increased BL lower extremity edema over the past week but denies chest pain, cough, and SOB. She denies having dysuria, urine incontinence, and increased urinary frequency. She is will to continue enemas and a heavy oral bowel regimen at this time. If no significant bowel movement by tomorrow she would like to try digital disimpaction. She denies feeling lightheaded, dizzy, having changes in vision, hearing, taste, and smell, dysuria, hematuria, and recent falls since her last. Principal Diagnosis 1. Hyponatremia, combination of hypovolemia + SIADH 2. Compression fracture 3. Incidental pulmonary nodule Discharge Data Allergies Allergy/AdvReac Type Severity Reaction Status Date / Time iodine Allergy UNK Verified 03/24/22 13:53 Penicillins AdvReac Unknown Verified 03/24/22 13:53 Uoiwtcc-VKZ-InT Reductase AdvReac Muscle Pain Verified 03/24/22 13:53 Inhibitor [Fohjtjj-Djv-Syb Reductase Inhibitor] Consultations 03/12/22 17:25 ED Decision to Admit Stat 03/16/22 09:07 Consult Nephrology Routine 03/16/22 18:08 Consult Orthopedic Surgery Routine Ordered Studies KUB X-Ray 03/12/22 16:33 KUB HISTORY: Acute generalized abdominal pain pain COMPARISON: CT abdomen and pelvis 03/11/2022 FINDINGS: Moderate fecal retention. Gas-filled loops of bowel within the central abdomen are likely large bowel and have decreased from the prior study. No renal calculi. No ureteral calculi. No pneumoperitoneum or pneumatosis. Degenerative changes of the spine, pelvis and hips. The study is limited secondary to patient body habitus. Calcified uterine fibroid. No fracture. IMPRESSION: Suggested constipation with nonobstructive bowel gas pattern. ACT 112: Negative or not required by law. The above report was generated using voice recognition software. It may contain grammatical, syntax or spelling errors. Electronically signed by: Marcello Gonzalez M.D. 03/12/2022 5:09 PM Chest X-Ray 03/12/22 16:34 XR chest 1V portable CLINICAL HISTORY: pain COMPARISON STUDY: Chest CT August 08, 2009. Chest radiograph November 16, 2018. FINDINGS: Lung volumes are mildly diminished. No pneumothorax is noted. There is no definite pleural effusion. Blunting of the left costophrenic angle is likely chronic. Mild bibasilar opacities favor atelectasis. Cardiomediastinal silhouette is stable. No evidence for pulmonary edema. IMPRESSION: No acute cardiopulmonary findings. ACT 112: Negative or not required by law. Electronically signed by: Alonzo Crump M.D. 03/12/2022 4:[address] 03/13/22 11:44 CT LUMBAR SPINE WO CON CT THORACIC SPINE WO CON HISTORY: 86 years-old Female fall few weeks ago, pain into lumbar spine as well, acute low back pain status post fall. COMPARISON: CT thoracic spine of same day, CT abdomen and pelvis 03/11/2022, lumbar spine radiographs 03/03/2022. TECHNIQUE: Multiple axial CT images of the thoracic and lumbar spine were obtained without the use of IV contrast. A dose lowering technique was used consistent with the principals of HOLLY. FINDINGS: CT THORACIC: Cardiomegaly. Dilation of the pulmonary arteries suggestive of pulmonary arterial hypertension. Extensive coronary artery calcifications. 4 mm solid nodule of the left upper lobe. Mild linear scarring versus atelectasis of the basal right lower lobe. 5 mm groundglass nodule of the right upper lobe, image 123. Central airways are patent. Moderate multilevel intervertebral disc space narrowing and spondylitic spurring with associated facet arthrosis. Age-indeterminate mild superior endplate compression deformity of the T4 vertebral body without retropulsion or acute fracture line. Additional mild superior endplate compression of the T7 vertebral body. T12 fracture as described below. CT LUMBAR: Trace pleural effusions. Subsegmental left basilar consolidation. Mild wall thickening of the distal esophagus. The study is degraded by respiratory motion artifact. Atherosclerosis of the aorta without aneurysm. Grade 1 anterolisthesis of 6 mm L4 on L5 is likely on a degenerative basis. 25% subacute superior endplate compression deformity of the T12 vertebral body is unchanged from the 03/03/2022 radiographs. 3 mm retropulsion. Paravertebral edema is noted without significant central canal or neural foraminal narrowing. No acute fracture or subluxation of the lumbar spine. Severe L1-L2 with moderate L2-L3 intervertebral disc space narrowing. 15 degrees levoscoliosis measured from L2-L4. Severe lower lumbar facet arthrosis. Moderate degeneration of the SI joints. There is at least moderate central canal stenosis at L3-L4 secondary to posterior annular disc bulge with ligamentum flavum thickening and facet arthrosis. Mild to moderate bilateral neural foraminal narrowing. Moderate central canal stenosis at L4-L5. IMPRESSION: 1. Subacute 25% superior endplate compression deformity of T12 with 3 mm retropulsion is unchanged from the 03/03/2022 lumbar spine radiographs. No significant associated central canal stenosis. 2. Mild superior endplate compression deformities of the T4 and T7 vertebral bodies are technically age-indeterminate however are favored to be chronic. 3. No acute fracture or subluxation of the lumbar spine. 4. Cardiomegaly with trace pleural effusions and right basilar atelectasis. 5. 5 mm groundglass nodule of the right upper lobe with 4 mm solid nodule of the left upper lobe. Follow-up guidelines provided below. Please refer to below summary of Fleischner criteria recommendations for follow- up of incidental CT nodules (Rm Mcdowell, Guidelines for management of small pulmonary nodules detected on CT scans: A statement from the Fleischner Society, Radiology 237: [phone].) SOLID NODULES Solitary nodule size: <6 mm * Low risk patients: no follow-up needed * high risk patients: optional CT at 12 months Note: newly detected indeterminate nodule in persons 35 years of age or older. * Low risk patients: minimal or absent history of smoking and/or other known risk factors * high risk patients: history of smoking or of other known risk factors (e.g. first degree relative with lung cancer, or exposure to asbestos, radon, uranium) * if a nodule up to 8 mm is partly solid or is ground glass further follow-up is required after 24 months to exclude possible slow growing adenocarcinoma ([place]) SUBSOLID NODULES Solitary pure ground-glass nodule * nodule size <6 mm - no CT follow-up required * nodule size >=6 mm - follow-up CT at 6-12 months, then every 2 years until 5 years ACT 112: Negative or not required by law. The above report was generated using voice recognition software. It may contain grammatical, syntax or spelling errors. Dictated: 03/13/2022 12:50 PM Transcribed: 03/13/2022 1:47 PM Jillian [id number] [facility] Electronically signed by: Marcello Gonzalez M.D. 03/13/2022 2:[address] 03/13/22 11:44 CT LUMBAR SPINE WO CON CT THORACIC SPINE WO CON HISTORY: 86 years-old Female fall few weeks ago, pain into lumbar spine as well, acute low back pain status post fall. COMPARISON: CT thoracic spine of same day, CT abdomen and pelvis 03/11/2022, lumbar spine radiographs 03/03/2022. TECHNIQUE: Multiple axial CT images of the thoracic and lumbar spine were obtained without the use of IV contrast. A dose lowering technique was used consistent with the principals of HOLLY. FINDINGS: CT THORACIC: Cardiomegaly. Dilation of the pulmonary arteries suggestive of pulmonary arterial hypertension. Extensive coronary artery calcifications. 4 mm solid nodule of the left upper lobe. Mild linear scarring versus atelectasis of the basal right lower lobe. 5 mm groundglass nodule of the right upper lobe, image 123. Central airways are patent. Moderate multilevel intervertebral disc space narrowing and spondylitic spurring with associated facet arthrosis. Age-indeterminate mild superior endplate compression deformity of the T4 vertebral body without retropulsion or acute fracture line. Additional mild superior endplate compression of the T7 vertebral body. T12 fracture as described below. CT LUMBAR: Trace pleural effusions. Subsegmental left basilar consolidation. Mild wall thickening of the distal esophagus. The study is degraded by respiratory motion artifact. Atherosclerosis of the aorta without aneurysm. Grade 1 anterolisthesis of 6 mm L4 on L5 is likely on a degenerative basis. 25% subacute superior endplate compression deformity of the T12 vertebral body is unchanged from the 03/03/2022 radiographs. 3 mm retropulsion. Paravertebral edema is noted without significant central canal or neural foraminal narrowing. No acute fracture or subluxation of the lumbar spine. Severe L1-L2 with moderate L2-L3 intervertebral disc space narrowing. 15 degrees levoscoliosis measured from L2-L4. Severe lower lumbar facet arthrosis. Moderate degeneration of the SI joints. There is at least moderate central canal stenosis at L3-L4 secondary to posterior annular disc bulge with ligamentum flavum thickening and facet arthrosis. Mild to moderate bilateral neural foraminal narrowing. Moderate central canal stenosis at L4-L5. IMPRESSION: 1. Subacute 25% superior endplate compression deformity of T12 with 3 mm retropulsion is unchanged from the 03/03/2022 lumbar spine radiographs. No significant associated central canal stenosis. 2. Mild superior endplate compression deformities of the T4 and T7 vertebral bodies are technically age-indeterminate however are favored to be chronic. 3. No acute fracture or subluxation of the lumbar spine. 4. Cardiomegaly with trace pleural effusions and right basilar atelectasis. 5. 5 mm groundglass nodule of the right upper lobe with 4 mm solid nodule of the left upper lobe. Follow-up guidelines provided below. Please refer to below summary of Fleischner criteria recommendations for follow- up of incidental CT nodules (Rm Mcdowell, Guidelines for management of small pulmonary nodules detected on CT scans: A statement from the Fleischner Society, Radiology 237: [phone].) SOLID NODULES Solitary nodule size: <6 mm * Low risk patients: no follow-up needed * high risk patients: optional CT at 12 months Note: newly detected indeterminate nodule in persons 35 years of age or older. * Low risk patients: minimal or absent history of smoking and/or other known risk factors * high risk patients: history of smoking or of other known risk factors (e.g. first degree relative with lung cancer, or exposure to asbestos, radon, uranium) * if a nodule up to 8 mm is partly solid or is ground glass further follow-up is required after 24 months to exclude possible slow growing adenocarcinoma ([place]) SUBSOLID NODULES Solitary pure ground-glass nodule * nodule size <6 mm - no CT follow-up required * nodule size >=6 mm - follow-up CT at 6-12 months, then every 2 years until 5 years ACT 112: Negative or not required by law. The above report was generated using voice recognition software. It may contain grammatical, syntax or spelling errors. Dictated: 03/13/2022 12:50 PM Transcribed: 03/13/2022 1:47 PM Jillian [phone] [facility] Electronically signed by: Marcello Gonzalez M.D. 03/13/2022 2:39 PM Hospital Course (1) Acute hyponatremia: Acute on chronic hyponatremia Has laboratory values and urine studies are consistent with SIADH. Baseline sodium around 128-133 Presented with sodium of 120 -Not currently symptomatic and was initially thought to be euvolemic -received 3% saline with initial increase- follow on 3% saline resulted in decrease in sodium level as well as peripheral edema increasing-had improvement following 20mg IV lasix with appropriate rise in her sodium level in the morning -Has been on fluid restriction and salt tablets as well but salt tablets discontinued on 03/15 but then resumed on 03/18 -Further reduce to 1500 ml fluid restriction and Lasix stopped on 03/16 -TSH normal -AM random cortisol 12 -Sodium was up to 126 in 03/15 and is back down to 124 on 03/16--> consult nephrology for further management-recommended further sodium tablets and free water restriction-most recent sodium up to 133 -Continue serial BMPs -Pain can also cause worsening of SIADH-pain control for compression fractures as below -Appreciate of assistance of nephrology, pt stable for dc and outpatient f/u with Dr. Bearden. Labs to be drawn on 03/23. Continue holding Lasix and stop Aldactone. (2) Compression fracture: Patient with fall earlier in the month. She had plain films performed at that time With T12 compression fracture with 25% compression and 3 mm of retropulsion, no central canal stenosis -Also with indeterminate age compression fractures of T4 and T7 on CT -Patient does not want to try opioids -Started calcitonin nasal spray on 03/15 -Added lidocaine patch again as Voltaren gel was not helping -DC Voltaren gel -Continue heating pad Continue Tylenol but make scheduled 650 mg p.o. every 8 hours -Consulted orthopedic spine surgery to see if he be a candidate for kyphoplasty appreciate input. -though risk of bleed, patient may use intermittent, every other day use PRN of NSAID, or MONSALVE-2 inhibitor for pain relief, if pain is severe. It appears controlled however. (3) Constipation: -Patient has been severely constipated for approximately 3 weeks prior to admission -CT abdomen/pelvis and KUB today negative for obstruction - Multiple large soft BM on 03/14 following bisacodyl suppository and more loose stools again on 03/16 -Patient has now been refusing the MiraLAX and docusate/senna-we will discontinue docusate/senna and make MiraLAX as needed With some migrating lower abdominal pains on the afternoon of 03/16-suspect laxative effect and gas-improved on own Continue to monitor and repeat KUB if pains return seems controlled on 03/18 (4) Paroxysmal atrial fibrillation: -Continue eliquis, and diltiazem - rate controlled (5) Hypertension: Continue diltiazem -Blood pressures are controlled (6) Hyperlipidemia: -Is intolerant to statins (7) Abnormal urinalysis: -ED gave patient a dose of ceftriaxone for a dirty UA but the patient has been afebrile, no leukocytosis, and no urinary symptoms - Agree UA on admission heavy with epis- continue to follow- hold abx. -Urine culture with gamma strep not Enterococcus-asymptomatic bacteriuria (8) Incidental pulmonary nodule: noted on imaging of CT of spine - 5 mm groundglass nodule of the right upper lobe with 4 mm solid nodule of the left upper lobe - Solitary nodule size: <6 mm * Low risk patients: no follow-up needed * high risk patients: optional CT at 12 months Low risk Plan PT/OT eval states pt able to go home with home health. Case management has arranged for home health. Pt did ask about a hospital bed but she does not qualify for such so this was explained to patient and she does not want to pay out of pocket for one. Advise f/u with pcp within 1 week. Labs on 03/23, f/u with nephrology in 1-2 weeks. She is medically and hemodynamically stable for discharge home today. Plan has been d/w Dr. Maria who has also seen and evaluated this patient and agrees with aforementioned. Total Time Total Time Spent Total Time Spent (In Minutes): >30 minutes Discharge Plan Discharge Items Patient Disposition: Home - Home Health Services Reason For Visit: HYPONATREMIA Discharge Diagnosis: low sodium Activity: Resume your previous activity Non-emergency contact: Primary Care Provider and Trim Line Worker Call non-emergency contact if: you have any medication questions and your symptoms worsen Follow-up/Referrals: Ayaan Bearden MD [Physician] - 04/01/22 1:00 pm (1-2 weeks) Ayaan Arriola MD [Primary Care Provider] - 03/24/22 10:00 am (APPT WITH KAREN JAMES) Diet: Heart Healthy Fluids: 1500ml (6 cups) Addtl Attending Provider Instructions: You were hospitalized due to a low sodium level. During your stay you were found to have a combination of issues that are contributing to your low sodium. The first was that you were dehydrated. Given that you were taking two different types of fluid pills and likely not drinking enough water, this led to being dehydrated and having a low sodium level. 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 This syndrome causes problems with regulating your sodium when it holds on to too much extra water. That is why it will be important moving forward to not drink more than 50 ounces of water each day. You will have some adjustments made to your home medication regimen. The first is that your Aldactone (Spironolactone) will be STOPPED. The second is that we want you to continue to HOLD your Lasix, meaning we do not want you to take your Lasix until you are seen in follow up by Dr. Bearden to determine if this medication needs to be resumed. For now, continue using compression stockings during the day (remove at night while sleeping) and increase walking as able which will help reduce fluid accumulation in your legs. You are being STARTED on Sodium tablets, you will take one tablet twice a day (once in the morning and once at night). You are also being given a prescription for Lidocaine patches that you can apply to your lower back as needed. Please follow directions and remove within 24 hours. Use the back brace provided as directed. You are going to have blood work drawn and sent to Dr. Bearden on 03/23/22. Home health nurse can do this for you. An order will be provided to you at discharge. It is advised that you follow up with Dr. Beadren in 1-2 weeks following your hospitalization. Also, advise follow up with your primary care provider within 1 week of discharge. If you have any questions/concerns after you are discharged from the hospital, you may call the nonemergency number listed on your discharge paperwork. In the event of a medical emergency, call 911. Pending Studies at Discharge: No Stand-Alone Forms: My [facility], Smoking Cessation Medications and DC Order Prescriptions: New sodium chloride 1 gram Tablet 1 g PO BID Qty: 60 0RF lidocaine 5 % Adhesive Patch,Medicated 1 patch transdermal QAM Qty: 30 0RF Continued Eliquis 5 mg tablet 5 mg PO BID Qty: 180 3RF diltiazem HCl [Cartia XT] 120 mg capsule,extended release 24hr 120 mg PO DAILY ergocalciferol (vitamin D2) 1,250 mcg (50,000 unit) capsule 50,000 unit PO .COMPLEX Rx Instructions: 50,000 units PO once a week; calcium citrate-vitamin D3 [Citracal + D Maximum] 315 mg-6.25 mcg (250 unit) tablet 1 tab PO DAILY ascorbic acid (vitamin C) [Vitamin C With Gill Hips] 1,000 mg tablet 1 g PO QAM sennosides-docusate sodium 8.6-50 mg tablet 1 tab-cap PO DAILY PRN (Reason: constipation) Qty: 60 0RF Discontinued furosemide 20 mg tablet 10 mg PO DAILY Qty: 90 3RF spironolactone 25 mg tablet 25 mg PO DAILY Qty: 90 3RF Label Comments: dont take any longer Rx Instructions: discontinued No Action hydrochlorothiazide 12.5 mg tablet 12.5 mg PO DAILY Qty: 30 2RF Discharge Orders: Discharge Order (Routine); Ordered 03/19/22 Ordered By: Dalia Hernandez/Other Patient Handouts: Treating Constipation, Compression Fx Admission Data Admit Date/Time: 03/12/22 20:20 Attending Provider: Ronen Maria Admit Provider: Pb Villasenor Primary Care Provider: Ayaan Arriola Other Providers: Pb Villasenor ; Corey Alejo ; Sae Zamorano ; [id number],CAPPT ; [facility] ; [facility] Other Interventions: Discharge Summary Assessment (RN) Last Done: 03/19/22 13:05 Supervising Physician Co-Signing Physician Notes Attending Attestation and Discharge Note: Pt seen/examined, chart reviewed, care plan d/w PA Dalia Beth. I agree w/ the garcia components of her documentation. 86yo female with h/o recent fall who presented with constipation and low sodium. The recent fall resulted in a T12 compression fracture. Lowest Na was 118; d/c level was 133. Thought 2nd to SIADH. Rx with salt tabs & fluid restriction along with 3% saline. Garcia recommendations were made by nephrology while here. Orthotics saw patient to fit her for TLSO brace for T12 compression fracture. She will have close f/u with nephrology shortly after discharge to ensure stability of Na level. Discharge exam: gen - NAD, sitting in chair mouth - MMM neck - no JVD heart - RRR, s1 s2 lungs - CTA b/l abd - soft NT ND BS+ ext - 2+ pitting edema from feet to thighs, pulses 2+ b/l, wearing TEDS hose Ronen Maria MD Coding Level of Care Code D/C DAY MANAGEMENT >30 MINS Diagnoses Acute hyponatremia E87.1 Compression fracture Constipation K59.00 Constipation type: unspecified constipation type Paroxysmal atrial fibrillation I48.0 Hypertension I10 Hyperlipidemia E78.5 Abnormal urinalysis R82.90 Incidental pulmonary nodule R91.1 Home Health Attestation I certify that this patient is under my care and that I, or a physicians sales assistant displays working with me, had a face to-face encounter that meets the home health nofw-us-vsdy encounter requirements with this patient. The encounter with the patient was in whole, or in part, for the following medical condition, which is the primary reason for home health care (list medical condition): I certify that, based on my findings, the following services are medically necessary home health services: My clinical findings support the need for the above services because: Further, I certify that my clinical findings support that this patient is homebound (i.e. absences from home require considerable and taxing effort and are for medical reasons or rastafari services or infrequently or of short duration when for other reasons) because: Certification for Home Health Services: Based on the above findings, I certify that this patient is confined to the home and needs intermittent detention care, physical therapy and/or speech therapy or continues to need occupational therapy. The patient is under my care, and I have initiated the establishment of the plan of care. This patient will be followed by a physician who will periodically review the plan of [email or web address]
== END 2022-03-19 13:40 | disposition home health service (06) | DRG 644 ==
LOC: ED 15:44 → 3W 20:20 → SUATTDRO 20:20 → 3W 22:36
DX: W19.XXXD Unspecified fall, subsequent encounter; Y92.89 Other specified places as the place of occurrence of the external cause; R91.1 Solitary pulmonary nodule; I44.0 Atrioventricular block, first degree; Z86.718 Personal history of other venous thrombosis and embolism; Z88.0 Allergy status to penicillin; B95.4 Other streptococcus as the cause of diseases classified elsewhere; N39.0 Urinary tract infection, site not specified; Z79.899 Other long term (current) drug therapy; E22.2 Syndrome of inappropriate secretion of antidiuretic hormone; S22.000D Wedge compression fracture of unspecified thoracic vertebra, subsequent encounter for fracture with routine healing; D47.2 Monoclonal gammopathy; I48.0 Paroxysmal atrial fibrillation; I10 Essential (primary) hypertension; Z91.041 Radiographic dye allergy status; K59.00 Constipation, unspecified; Z79.01 Long term (current) use of anticoagulants; E78.5 Hyperlipidemia, unspecified